=== PATIENT | female | born 1965 | race Caucasian/White ===

== ENCOUNTER 2018-01-25 09:04 | Outpatient (CLI) | payer MEDICAID, SELFPAY ==
[2018-01-25 09:36] LABS: Abs Immature Grans 0.01 k/cumm (0.0-0.09); Absolute Basophil Count 0.02 k/cumm (0.0-0.2); Absolute Eosinophil Count 0.29 k/cumm (0.0-0.7); Absolute Lymphocyte Count 1.09 k/cumm (1.2-3.4); Absolute Monocyte Count 0.52 k/cumm (0.11-0.7); Basophils % 0.3; Eosinophils % 4.7; HCT 43.7 % (36.0-46.0); HGB 15.2 g/dL (12.0-15.5); Immature Grans % 0.2; Lymphocytes % 17.8; Mean Corp. HGB Concentration 34.8 g/dL (32.0-36.0); Mean Corpuscular Volume 86.4 fL (80-95); Mean Platelet Volume 9.9 fL (8.0-11.0); Monocytes % 8.5; Neutrophils % 68.5; RBC 5.06 m/cumm (4.00-5.20); RBC Distribution Width 15.2 % (11.7-14.6); White Blood Cell Count 6.13 k/cumm (4.4-10.8)
[2018-01-25 09:47] LABS: ALT 46 U/L (12-78); AST 31 U/L (15-37); Albumin 3.5 g/dL (3.4-5.0); Alkaline Phosphatase 143 U/L (46-116); Anion Gap 9.3 mmol/L (3-11); BUN 8 mg/dL (7-18); Bilirubin, Total 1.2 mg/dL (0.2-1.0); CO2 27.7 mmol/L (21.0-32.0); CREATININE 0.75 mg/dL (0.55-1.02); Calcium 9.4 mg/dL (8.5-10.1); Chloride 106 mmol/L (98-107); Glucose 145 mg/dL (70-100); Sodium 143 mmol/L (136-145); Total Protein 7.5 g/dL (6.4-8.2)
[2018-01-25 09:50] LABS: Diff Comment PLT Morph Reviewed; Platelet Count 95 x1000/uL (130-400)
[2018-01-25 09:51] LABS: RBC Morphology Normal
[2018-01-25 23:02] LABS: Estradiol 42 pg/ml
== END 2018-01-25 09:24 ==
PROVIDERS: PCP Physician Assistant Medical; Visit Provider Internal Medicine
DX: Z85.3 Personal history of malignant neoplasm of breast (principal)
CPT/HCPCS: 36415; 80053; 82670; 83001; 85025

== ENCOUNTER 2018-05-17 07:04 | Outpatient (CLI) | payer MEDICAID, SELFPAY ==
[2018-05-17 07:52] LABS: ALT 45 U/L (12-78); AST 26 U/L (15-37); Albumin 3.2 g/dL (3.4-5.0); Alkaline Phosphatase 208 U/L (46-116); Anion Gap 5.6 mmol/L (3-11); BUN 8 mg/dL (7-18); Bilirubin, Total 0.9 mg/dL (0.2-1.0); CO2 29.4 mmol/L (21.0-32.0); CREATININE 0.76 mg/dL (0.55-1.02); Calcium 8.7 mg/dL (8.5-10.1); Chloride 104 mmol/L (98-107); Glucose 293 mg/dL (70-100); Potassium 3.4 mmol/L (3.5-5.1); Sodium 139 mmol/L (136-145); Total Protein 7.3 g/dL (6.4-8.2)
[2018-05-17 11:41] LABS: Abs Immature Grans 0.01 k/cumm (0.0-0.09); Absolute Basophil Count 0.02 k/cumm (0.0-0.2); Absolute Eosinophil Count 0.21 k/cumm (0.0-0.7); Absolute Lymphocyte Count 1.05 k/cumm (1.2-3.4); Absolute Monocyte Count 0.63 k/cumm (0.11-0.7); Absolute Neutrophil Count 4.59 k/cumm (1.2-6.7); Basophils % 0.3; Eosinophils % 3.2; HCT 42.6 % (36.0-46.0); HGB 14.7 g/dL (12.0-15.5); Immature Grans % 0.2; Lymphocytes % 16.1; Mean Corp. HGB Concentration 34.5 g/dL (32.0-36.0); Mean Corpuscular Hemoglobin 29.8 pg (27.0-33.0); Mean Corpuscular Volume 86.2 fL (80-95); Mean Platelet Volume 10.3 fL (8.0-11.0); Monocytes % 9.7; Neutrophils % 70.5; Platelet Count 89 x1000/uL (130-400); RBC 4.94 m/cumm (4.00-5.20); RBC Distribution Width 15.2 % (11.7-14.6); White Blood Cell Count 6.51 k/cumm (4.4-10.8)
[2018-05-17 12:10] LABS: Diff Comment PLT Morph Reviewed; RBC Morphology Normal
[2018-05-17 17:03] LABS: Estradiol 36 pg/ml
[2018-05-18 10:15] LABS: FSH 7.7 mIU/ml
== END 2018-05-17 07:24 ==
PROVIDERS: PCP Physician Assistant Medical; Visit Provider Internal Medicine
DX: Z85.3 Personal history of malignant neoplasm of breast (principal)
CPT/HCPCS: 36415; 80053; 82670; 83001; 85025

== ENCOUNTER 2018-06-08 01:30 | Outpatient (CLI) | payer MEDICAID, SELFPAY ==
--- NOTE | 2018-06-08 13:35 | DI.RAD_ITS ---
SYMPTOMS/DIAGNOSIS: BREAST CA, STAGE II, RIGHT, C50.911; LONG-TERM CURRENT USE OF AROMATASE INHIBITOR, Z79.811; ASYMPTOMATIC POSTMENOPAUSAL STATE; ? OSTEOPOROSIS DEXA SCAN: Routine examination. No priors for comparison. Evaluation of the lateral spine shows no compression deformities. Evaluation of the left hip shows a total T score of 0.4 and a Z score of 1.1. Evaluation of the lumbar spine shows a total T score of 0.3 and a Z score of 1.3. This is within normal limits. No evidence of osteoporosis is present. IMPRESSION: No evidence of osteoporosis.
== END 2018-06-08 01:50 ==
PROVIDERS: PCP Physician Assistant Medical; Visit Provider Internal Medicine
DX: C50.911 Malignant neoplasm of unspecified site of right female breast (principal); Z79.811 Long term (current) use of aromatase inhibitors; Z78.0 Asymptomatic menopausal state; Z13.820 Encounter for screening for osteoporosis
CPT/HCPCS: 77080

== ENCOUNTER 2018-06-15 00:54 | Outpatient (CLI) | payer MEDICAID, SELFPAY ==
--- NOTE | 2018-06-15 07:00 | DIABASSESS_ITS ---
DESCRIPTION/ASSESSMENT: Amanda Miranda presents for diabetes self management support with a focus on lifestyle changes to prevent progression of diabetes. She reports many side effects of thirst, frequent urination, blurred vision, fatigue. Food Guidelines - Amanda has made changes to her meal plan by giving up sugar sweetened beverages and high sugar foods. She has [place] muffin PB or cream of wheat; a tuna sandwich, regular supperof meat, poatao occasionally, and vegetable. She has Yesenia cookies that are low sugar for snack as well as yogurt or fresh raspberry. She sleeps 4-10PM and naps at times during the day since she works nights a few nights a week. Physical Activity - states she does no regular physical activity but is on her feet a lot. Medication - taking Metformin without S/E. Monitoring - usually tests blood sugar around 5PM with range 117-278. No A1c available at this time. Risks/Related health history - states she has stage 4 cirrhosis; s/p breast cancer with residual neuropathy. She denies any stressors around these co- morbidities. 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 INTERVENTION: DSME is provided in the following AADE 7 areas based on patients interest and assessment of needs: Food Guidelines - reviewed food guide focused on healthier carbohydrates and distribution. Briefly discussed mindful eating. Physical Activity - discussed benefits and options. Medication - Explained dosages and side effects. Monitoring - suggested monitoring for 'meaning' to see what is impacting her variation in blood sugars. Reviewed blood sugar goals. Prevention - brief review of foot care. ACTION PLAN: Amanda will begin walking when it is safe and she has more time. look at carbohydrate on the package; look for fiber Individual DSME/T __1__ units billed TIME IN: 704 OUT: 744 No DM group education series being offered at this time.
== END 2018-06-15 01:14 ==
PROVIDERS: PCP Physician Assistant Medical; Visit Provider Dietitian, Registered
DX: E11.9 Type 2 diabetes mellitus without complications (principal); Z71.3 Dietary counseling and surveillance
CPT/HCPCS: 97802

== ENCOUNTER 2018-08-12 11:50 | Outpatient (CLI) | payer MEDICAID, SELFPAY ==
[2018-08-12 12:16] LABS: Abs Immature Grans 0.02 k/cumm (0.0-0.09); Absolute Basophil Count 0.01 k/cumm (0.0-0.2); Absolute Eosinophil Count 0.19 k/cumm (0.0-0.7); Absolute Lymphocyte Count 0.94 k/cumm (1.2-3.4); Absolute Neutrophil Count 3.83 k/cumm (1.2-6.7); Basophils % 0.2; Eosinophils % 3.5; HCT 41.5 % (36.0-46.0); Immature Grans % 0.4; Lymphocytes % 17.4; Mean Corp. HGB Concentration 33.7 g/dL (32.0-36.0); Mean Corpuscular Hemoglobin 29.3 pg (27.0-33.0); Mean Corpuscular Volume 86.8 fL (80-95); Monocytes % 7.4; Neutrophils % 71.1; RBC 4.78 m/cumm (4.00-5.20); RBC Distribution Width 15.2 % (11.7-14.6); White Blood Cell Count 5.39 k/cumm (4.4-10.8)
[2018-08-12 12:35] LABS: Diff Comment PLT Morph Reviewed; Platelet Count 89 x1000/uL (130-400); RBC Morphology Normal
[2018-08-12 12:48] LABS: ALT 35 U/L (12-78); AST 22 U/L (15-37); Albumin 3.3 g/dL (3.4-5.0); Alkaline Phosphatase 165 U/L (46-116); Anion Gap 7.8 mmol/L (3-11); BUN 11 mg/dL (7-18); Bilirubin, Total 0.9 mg/dL (0.2-1.0); CO2 28.2 mmol/L (21.0-32.0); CREATININE 0.64 mg/dL (0.55-1.02); Calcium 8.5 mg/dL (8.5-10.1); Chloride 104 mmol/L (98-107); Glucose 173 mg/dL (70-100); Potassium 3.5 mmol/L (3.5-5.1); Sodium 140 mmol/L (136-145); Total Protein 6.8 g/dL (6.4-8.2)
[2018-08-12 21:18] LABS: Estradiol 25 pg/ml
[2018-08-13 10:04] LABS: FSH 9.3 mIU/ml
== END 2018-08-12 12:10 ==
PROVIDERS: PCP Physician Assistant Medical; Visit Provider Internal Medicine
DX: Z85.3 Personal history of malignant neoplasm of breast (principal)
CPT/HCPCS: 36415; 80053; 82670; 83001; 85025

== ENCOUNTER 2018-08-18 14:06 | Outpatient (REF) | payer MEDICAID, SELFPAY ==
[2018-08-18 21:09] LABS: Cholesterol 165 mg/dL (50-200); HDL Cholesterol 39 mg/dL (40-60); LDL CHOLESTEROL 112 mg/dL (<100); Triglyceride 70 mg/dL (30-150)
== END 2018-08-18 14:26 ==
LOC: NCHCN 14:06
PROVIDERS: PCP Physician Assistant Medical; Visit Provider Physician Assistant Medical
DX: E11.9 Type 2 diabetes mellitus without complications (principal)
CPT/HCPCS: 80061; 83721

== ENCOUNTER 2018-12-09 07:56 | Outpatient (CLI) | payer MEDICAID, SELFPAY ==
[2018-12-09 08:32] LABS: Abs Immature Grans 0.01 k/cumm (0.0-0.09); Absolute Basophil Count 0.01 k/cumm (0.0-0.2); Absolute Eosinophil Count 0.15 k/cumm (0.0-0.7); Absolute Lymphocyte Count 1.17 k/cumm (1.2-3.4); Absolute Monocyte Count 0.58 k/cumm (0.11-0.7); Basophils % 0.2; Eosinophils % 2.4; HCT 44.4 % (36.0-46.0); HGB 15.2 g/dL (12.0-15.5); Immature Grans % 0.2; Lymphocytes % 18.8; Mean Corp. HGB Concentration 34.2 g/dL (32.0-36.0); Mean Corpuscular Hemoglobin 29.2 pg (27.0-33.0); Mean Corpuscular Volume 85.2 fL (80-95); Monocytes % 9.3; Neutrophils % 69.1; RBC 5.21 m/cumm (4.00-5.20); White Blood Cell Count 6.22 k/cumm (4.4-10.8)
[2018-12-09 08:46] LABS: ALT 40 U/L (12-78); AST 28 U/L (15-37); Albumin 3.4 g/dL (3.4-5.0); Alkaline Phosphatase 180 U/L (46-116); BUN 13 mg/dL (7-18); CREATININE 0.61 mg/dL (0.55-1.02); Calcium 9.2 mg/dL (8.5-10.1); Chloride 106 mmol/L (98-107); Glucose 134 mg/dL (70-100); Potassium 3.9 mmol/L (3.5-5.1); Sodium 141 mmol/L (136-145); Total Protein 7.7 g/dL (6.4-8.2)
[2018-12-09 08:56] LABS: Platelet Count 89 x1000/uL (130-400)
[2018-12-09 17:35] LABS: Estradiol 20 pg/ml
[2018-12-10 10:42] LABS: FSH 10.4 mIU/ml
== END 2018-12-09 08:16 ==
PROVIDERS: PCP Physician Assistant Medical; Visit Provider Internal Medicine
DX: Z78.0 Asymptomatic menopausal state (principal); C50.911 Malignant neoplasm of unspecified site of right female breast
CPT/HCPCS: 36415; 80053; 82670; 83001; 85025

== ENCOUNTER 2019-02-25 11:58 | Outpatient (CLI) | payer MEDICAID, SELFPAY ==
[2019-02-25 12:45] LABS: INR 1.1 (0.9-1.1)
[2019-02-25 13:00] LABS: Abs Immature Grans 0.01 k/cumm (0.0-0.09); HCT 42.3 % (36.0-46.0); HGB 14.6 g/dL (12.0-15.5); Mean Corp. HGB Concentration 34.5 g/dL (32.0-36.0); Mean Corpuscular Hemoglobin 29.4 pg (27.0-33.0); Mean Corpuscular Volume 85.3 fL (80-95); Mean Platelet Volume 9.8 fL (8.0-11.0); RBC 4.96 m/cumm (4.00-5.20); RBC Distribution Width 14.8 % (11.7-14.6); White Blood Cell Count 5.55 k/cumm (4.4-10.8)
[2019-02-25 13:29] LABS: ALT 46 U/L (14-59); AST 26 U/L (15-37); Albumin 3.6 g/dL (3.4-5.0); Alkaline Phosphatase 159 U/L (46-116); Anion Gap 10.5 mmol/L (3-11); BUN 8 mg/dL (7-18); Bilirubin, Total 1.2 mg/dL (0.2-1.0); CO2 24.5 mmol/L (21.0-32.0); CREATININE 0.56 mg/dL (0.55-1.02); Calcium 8.7 mg/dL (8.5-10.1); Chloride 107 mmol/L (98-107); Glucose 142 mg/dL (70-100); Potassium 3.5 mmol/L (3.5-5.1); Sodium 142 mmol/L (136-145); Total Protein 7.2 g/dL (6.4-8.2)
[2019-02-25 13:38] LABS: Platelet Count 75 x1000/uL (130-400)
[2019-02-25 13:40] LABS: Absolute Eosinophil Count 0.17 k/cumm (0.0-0.7); Absolute Lymphocyte Count 1.33 k/cumm (1.2-3.4); Absolute Monocyte Count 0.28 k/cumm (0.11-0.7); Absolute Neutrophil Count 3.77 k/cumm (1.2-6.7); Atypical Lymphocytes % 6; Diff Comment Manual Differential; RBC Morphology Normal
[2019-02-25 22:53] LABS: Estradiol 24 pg/ml
== END 2019-02-25 12:18 ==
PROVIDERS: PCP Physician Assistant Medical; Visit Provider Internal Medicine
DX: Z78.0 Asymptomatic menopausal state (principal); C50.911 Malignant neoplasm of unspecified site of right female breast; K74.60 Unspecified cirrhosis of liver
CPT/HCPCS: 36415; 80053; 82670; 83001; 85025; 85610

== ENCOUNTER 2019-04-13 07:15 | Outpatient (CLI) | payer MEDICAID, SELFPAY ==
[2019-04-14 13:21] LABS: FSH 7.4 mIU/mL (See Note)
[2019-04-14 16:03] LABS: Estradiol 36 pg/mL (See Note)
== END 2019-04-13 07:35 ==
PROVIDERS: PCP Physician Assistant Medical; Visit Provider Internal Medicine
DX: Z78.0 Asymptomatic menopausal state (principal)
CPT/HCPCS: 36415; 82670; 83001

== ENCOUNTER 2019-09-17 16:34 | Emergency (ER) | payer MEDICAID, SELFPAY ==
[2019-09-17 16:39] VITALS: BP 148/70; PULSE 87; RESP 18; TEMP 36.8; O2SAT 96
--- NOTE | 2019-09-17 16:49 | W.ED.GENAD ---
Discharge Plan Disposition Patient Disposition: HOME Condition: Improving Discharge Details Chief Complaint: Allergic Clinical Impression: Allergic reaction Primary Care Provider: Munira Kuo ED Provider: Alexys Fletcher Home Meds and New Rx's Prescriptions: New prednisone 20 mg tablet 40 mg PO DAILY 2 Days Qty: 4 RF: 0 Continued venlafaxine [Effexor XR] 37.5 MG capsule,extended release 24hr 75 mg PO DAILY RF: 0 Discharge Instructions Instructions: General Allergic Reaction (ED) Additional Instructions: Home to rest today. Please take the prednisone as prescribed the next 2 days. You may continue Benadryl 25 mg by mouth as needed for itching or swelling. Return if develop difficulty breathing, difficulty swallowing, or any other acute concerns. Medical Decision Making 54-year-old female who was checking her answering machine when she felt a sharp stinging and questions whether insect had landed on her hand due to open windows of the house. She developed mild erythema and swelling. She arrives feeling somewhat improved, denying difficulty breathing or trouble swallowing. Her exam reveals a slightly erythematous right long finger. Patient given prednisone, ranitidine, Benadryl and observed. She is improved. I will place her on 2 additional days of prednisone to toth against recrudescence of symptoms. She is stable and appropriate for discharge home. HPI General Mode of arrival: ambulatory. Date/Time Provider Initiated Documentation: 09/17/19 16:42. Limitations to Documentation: no limitations. Information obtained by: patient. History of Present Illness 54 year old F presents to the emergency department with the chief complaint of Right long finger pain and swelling after probable insect bite, described as moderate, Quality is described as dull and constant, and is localized to the right and upper extremity. Patient reports no radiation. Patient started experiencing this minute(s) and it has been constant. No relieving factors improve symptom(s), No exacerbating factors reported . Patient did receive the following treatments prior to arrival, none Related Data Home Medications Medication Instructions Recorded Confirmed venlafaxine [Effexor XR] 75 mg PO DAILY tab-cap 01/06/13 10/08/16 prednisone 40 mg PO DAILY 2 Days #4 tab 09/17/19 Previous Rx's Medication Instructions Recorded prednisone 40 mg PO DAILY 2 Days #4 tab 09/17/19 Allergies Allergy/AdvReac Type Severity Reaction Status Date / Time bee venom protein (honey bee) AdvReac Other (See Unverified 09/17/19 16:44 Comment) transparent dressing AdvReac rash Unverified 05/28/17 14:55 General Stated Complaint: Allergic JAYCE: 3 Review of Systems Narrative: No shortness of breath, no difficulty swallowing. No swelling of the hand. [facility] Surgical History (Updated 02/10/18 @ 14:36 by Akira Mobile DC) Breast, Mastectomy right section Cholecystectomy (10/08/16) Tonsillectomy and adenoidectomy Family History Other Neoplasm Social History Smoking/Tobacco Use Status: Never Drug use: Never Substance use type: does not use Do you feel safe at home: Yes Do you feel safe in your relationship?: Yes Exam Narrative Exam Narrative: GEN: awake, alert, oriented 3. Pleasant, well groomed, interactive. HEAD: Normocephalic, atraumatic ENT: Mucous membranes moist, oropharynx unremarkable, External ear exam unremarkable EYES: PERRL, EOMI NECK: Full ROM, no MIAN, no menigismus CHEST/RESP: Nontender, clear to auscultation bilateral, no wheeze/rhonchi/rales CARDIOVASCULAR: RRR, no murmur, rub lupe. 2+ Rad pulse bilateral EXT: Full ROM, the right long finger is mildly edematous with distal erythema. Capillary fill less than 2 seconds. Neuro: Grossly normal neurologic exam, conversant, interactive. Psych: Speech fluent, thoughts congruent, affect normal Course Vital Signs Vital signs: Vital Signs Temperature 36.8 C 09/17/19 16:39 Pulse 87 09/17/19 16:39 Respiratory Rate 18 09/17/19 16:39 Blood Pressure 148/70 H 09/17/19 16:39 Pulse Oximetry 96 09/17/19 16:39 Temperature 36.8 C 09/17/19 16:39 Temperature Source Temporal Artery Scan 09/17/19 16:39 Pulse 87 09/17/19 16:39 Respiratory Rate 18 09/17/19 16:39 Respiratory Effort Non-Labored 09/17/19 16:44 Blood Pressure 148/70 H 09/17/19 16:39 Blood Pressure Position Sitting 09/17/19 16:39 Pulse Oximetry 96 09/17/19 16:39 Oxygen Delivery Method Room Air 09/17/19 16:39 Oxygen Flow Rate 0 09/17/19 16:39 Pain Level 8 09/17/19 16:39
[2019-09-17] MEDS: predniSONE 20 MG TAB 40 MG PO (17:36)
[2019-09-17] MEDS: diphenhydrAMINE 25 MG CAP PO (17:36)
== END 2019-09-17 17:58 | disposition home or self-care (01) ==
PROVIDERS: Emergency Provider Emergency Medicine; PCP Physician Assistant Medical
DX: S60.462A Insect bite (nonvenomous) of right middle finger, initial encounter (principal); R60.0 Localized edema; W57.XXXA Bitten or stung by nonvenomous insect and other nonvenomous arthropods, initial encounter
CPT/HCPCS: 99283; J7512

== ENCOUNTER 2019-09-26 03:48 | Outpatient (CLI) | payer MEDICAID, SELFPAY ==
[2019-09-26 12:24] LABS: Abs Immature Grans 0.02 k/cumm (0.0-0.09); Absolute Basophil Count 0.02 k/cumm (0.0-0.2); Absolute Eosinophil Count 0.12 k/cumm (0.0-0.7); Absolute Lymphocyte Count 0.98 k/cumm (1.2-3.4); Absolute Monocyte Count 0.46 k/cumm (0.11-0.7); Absolute Neutrophil Count 3.54 k/cumm (1.2-6.7); Basophils % 0.4; Eosinophils % 2.3; HCT 43.6 % (36.0-46.0); HGB 15.1 g/dL (12.0-15.5); Immature Grans % 0.4 %; Lymphocytes % 19.1; Mean Corp. HGB Concentration 34.6 g/dL (32.0-36.0); Mean Corpuscular Hemoglobin 29.8 pg (27.0-33.0); Mean Platelet Volume 10.1 fL (8.0-11.0); Monocytes % 8.9; Neutrophils % 68.9; RBC 5.07 m/cumm (4.00-5.20); RBC Distribution Width 15.2 % (11.7-14.6); White Blood Cell Count 5.14 k/cumm (4.4-10.8)
[2019-09-26 12:35] LABS: ALT 46 U/L (14-59); AST 24 U/L (15-37); Albumin 3.4 g/dL (3.4-5.0); Alkaline Phosphatase 164 U/L (46-116); Anion Gap 7.1 mmol/L (3-11); BUN 8 mg/dL (7-18); Bilirubin, Total 1.3 mg/dL (0.2-1.0); CO2 28.9 mmol/L (21.0-32.0); CREATININE 0.67 mg/dL (0.55-1.02); Calcium 8.4 mg/dL (8.5-10.1); Chloride 102 mmol/L (98-107); Glucose 295 mg/dL (74-106); Potassium 3.6 mmol/L (3.5-5.1); Sodium 138 mmol/L (136-145); Total Protein 7.1 g/dL (6.4-8.2)
[2019-09-26 12:40] LABS: Diff Comment PLT Morph Reviewed; Platelet Count 73 x1000/uL (130-400); RBC Morphology Normal
[2019-09-26 21:51] LABS: Estradiol 23 pg/mL (See Note)
[2019-09-27 15:09] LABS: FSH 12.5 mIU/mL (See Note)
== END 2019-09-26 04:08 ==
PROVIDERS: PCP Physician Assistant Medical; Visit Provider Internal Medicine
DX: C50.911 Malignant neoplasm of unspecified site of right female breast (principal); Z78.0 Asymptomatic menopausal state
CPT/HCPCS: 36415; 80053; 82670; 83001; 85025

== ENCOUNTER 2019-10-10 09:28 | Outpatient (REF) | payer MEDICAID, SELFPAY ==
--- NOTE | 2019-10-10 08:30 | PAPFT_PTH ---
PATIENT: Amanda Miranda LOC: [facility] U#:[id number] AGE/SX: 54/F ROOM: RE10/10/[address]: NASIM Lee : 1965 BED: DIS: 10/10/2019 SPEC #: [id number] RECD: 10/10/19 12:54 STATUS: XAVIER RESherrie #: [id number] ESTELLE: 10/10/19 08:[address]: Julianna Vallecillo DEPT: [facility] Cytology RECD BY: Jeniffer Gamble ENTERED: 10/10/19 12:54 SP TYPE: PAPFT OTHR DR: Munira Kuo Tissues: 1 - CX/ENDOCX FOR PAP SMEARS Procedures: PAP THIN PREP/UVM Screening HPV DNA PROBE Comments: [id number]
== END 2019-10-10 09:48 ==
LOC: LBN 09:28
PROVIDERS: PCP Physician Assistant Medical; Visit Provider Nurse Practitioner Family
DX: Z12.4 Encounter for screening for malignant neoplasm of cervix (principal); Z11.51 Encounter for screening for human papillomavirus (HPV)
CPT/HCPCS: 88142; 87624

== ENCOUNTER 2019-10-12 02:23 | Outpatient (CLI) | payer MEDICAID, SELFPAY ==
--- NOTE | 2019-10-12 07:00 | DI.US_ITS ---
EXAM: US PELVIS TRANSVAGINAL Postmenopausal bleeding, n95.0: TECHNIQUE: Transabdominal and transvaginal imaging was performed using standard protocol. COMPARISON: No exams were available for comparison FINDINGS: KIDNEYS: Kidneys are symmetric in size. No evidence of renal calculi. No evidence of hydronephrosis. No renal mass or cyst identified. Bladder: Unremarkable. Incidental 2.4 centimeter liver cyst. UTERUS: Anteverted. The uterus measures 8.4 x 2.4 x 4.8 cm. Endometrium: 3 millimeters. Myometrium: Unremarkable. Cervix: Unremarkable. OVARIES: Right: Cyst or mass: Right ovary was unable to be visualized either transabdominally or transvaginall y. Left: Cyst or mass: None. DOPPLER: Color: Symmetric and uniform flow to the left ovary. No hyperemia. Duplex: Normal ovarian arterial waveforms visualized. CUL-DE-SAC: Free fluid: None. IMPRESSION: 1. Normal-appearing uterus with endometrial stripe within normal limits. 2. Unremarkable left ovary. The right ovary was not visualized. DATA REPOSITORY:
== END 2019-10-12 02:43 ==
PROVIDERS: PCP Physician Assistant Medical; Visit Provider Nurse Practitioner Family
DX: N95.0 Postmenopausal bleeding (principal)
CPT/HCPCS: 76830; 76856

== ENCOUNTER 2020-01-06 07:01 | Day surgery (SDC) | payer MEDICAID, SELFPAY ==
[2020-01-06 07:16] VITALS: BP 132/82; PULSE 87; RESP 18; TEMP 36.5; O2SAT 96
[2020-01-06] MEDS: Lactated Ringers 1,000 ML 80 ML IV (07:39)
--- NOTE | 2020-01-06 07:53 | W.PM.DSUDISC ---
Discharge Plan Disposition Patient Disposition: HOME Condition: Good Discharge Details Reason For Visit: Colonoscopy Attending Provider: Em Reynolds Primary Care Provider: Munira Kuo Home Meds and New Rx's Prescriptions: Continued metformin 500 mg tablet 500 mg PO DAILY RF: 0 exemestane 25 mg tablet 25 mg PO DAILY RF: 0 venlafaxine [Effexor XR] 37.5 MG capsule,extended release 24hr 75 mg PO DAILY RF: 0 nystatin 100,000 unit/gram cream 1 applic TP BID Qty: 30 RF: 2 triamcinolone acetonide 0.1 % cream 1 applic TP BID Qty: 30 RF: 1 clobetasol [Temovate] 0.05 % ointment 1 applic TP BID Qty: 60 RF: 1 Discontinued polyethylene glycol 3350 17 gram/dose powder 238 g PO ONCE Qty: 238 RF: 0 bisacodyl [Dulcolax (bisacodyl)] 5 mg tablet,delayed release (DR/EC) 5 mg PO ONCE Qty: 4 RF: 0 Discharge Instructions Additional Instructions: Findings: Your colonoscopy was normal. Follow up: Plan for colonoscopy in 5 years due to family history of colon cancer. Please call if you develop: fevers >101.5 Nausea or Vomiting Abdominal pain that is not transient DAY SURGERY UNIT POST COLONOSCOPY INSTRUCTIONS 1. Because there will be medication in your system for the next 24 hours, you may feel a little sleepy. Your coordination will be affected. Therefore: a. Do not drive or operate dangerous equipment for 24 hours. b. Do not drink alcohol beverages for 24 hours (not even beer). c. Plan to go home and rest for the day. 2. Generally there are no restrictions on your activity after a day or so has gone by, but you may feel a bit fatigued for a few days. 3 After you arrive home you may have a light meal and return to a normal diet as you can tolerate it without feeling sick to your stomach. 4. After surgery, you may feel pain or discomfort. This should be only transient, but if it persists please contact your doctor. 5. If there are any questions regarding the findings of your procedure, please feel free to contact your doctor. 6. If you are unable to contact your doctor with a problem, contact the hospital at [phone]. 7. Continue all your regular medications unless directed otherwise. I understand the above instructions and have no questions. Signature of Patient or Responsible Adult Escort Date/Time Name of Responsible Adult Escort Signature of Nurse Date/Time Activity:: Activity as Tolerated Diet:: As Tolerated Discharge Orders Discharge Orders: Discharge Order (Routine); Ordered 01/06/20 Ordered By: Em Reynolds DS: Diagnosis Discharge Diagnosis (1) FH: colon cancer: Status: Acute
--- NOTE | 2020-01-06 07:55 | W.COLOREPORT ---
Date of service: 01/06/20 Time of Service: 08:48 Colonoscopy Report Date of procedure: 01/06/20 Pre-op diagnosis general: FH colon cancer Post-op diagnosis procedure note: other (Normal colon) Procedure: Colonoscopy Surgeon: Em Reynolds Anesthesia proc note operative: MAC Indications: This patient presents for routine colonoscopy. Her mother was treated for colon cancer. Her last colonoscopy in 2014 was normal. She has no symptoms. Procedure Description: The patient was placed in the left Al position. Propofol was titrated to sedation. Digital rectal examination revealed no abnormalities. The scope was advanced to the cecum without difficulty. The ileocecal valve and appendiceal orifice were clearly identified. The prep was good. The scope was slowly withdrawn over the course of greater than 6 minutes with no abnormalities seen in the ascending, transverse, descending, sigmoid colon or rectum including on retroflexed view. The patient tolerated the procedure well and was stable to recovery. Plan for routine screening colonoscopy in 5 years or sooner if symptoms indicate.
[2020-01-06 09:28] VITALS: BP 133/82; PULSE 80; RESP 18; TEMP 36.3; O2SAT 97
== END 2020-01-06 09:22 | disposition home or self-care (01) ==
PROVIDERS: PCP Physician Assistant Medical; Visit Provider Surgery
PROC: 0DJD8ZZ Inspection of Lower Intestinal Tract, Via Natural or Artificial Opening Endoscopic (ICD-10-PCS; CPT 45378; principal; 2020-01-06 08:30)
DX: Z12.11 Encounter for screening for malignant neoplasm of colon (principal); Z80.0 Family history of malignant neoplasm of digestive organs; E11.9 Type 2 diabetes mellitus without complications; Z85.3 Personal history of malignant neoplasm of breast
CPT/HCPCS: 45378

== ENCOUNTER 2020-02-21 02:37 | Outpatient (CLI) | payer MEDICAID, SELFPAY ==
[2020-02-21 14:47] LABS: Abs Immature Grans 0.01 10^3/uL (0.0-0.06); Absolute Basophil Count 0.02 10^3/uL (0.0-0.2); Absolute Eosinophil Count 0.16 10^3/uL (0.0-0.7); Absolute Lymphocyte Count 0.89 10^3/uL (1.2-3.4); Absolute Monocyte Count 0.38 10^3/uL (0.1-0.8); Absolute Neutrophil Count 3.35 10^3/uL (1.2-6.7); Basophils % 0.4; Eosinophils % 3.3; HCT 42.1 % (36.0-46.0); HGB 14.6 g/dL (11.2-15.7); Immature Grans % 0.2; Lymphocytes % 18.5; MCH 29.5 pg (27.0-33.0); MCHC 34.7 % (32.0-36.0); MCV 85.1 fL (80-95); MPV 10.1 fL (8.0-11.0); Monocytes % 7.9; Neutrophils % 69.7; Nucleated RBC 0 %; RBC 4.95 10^6/uL (3.93-5.22); RDW 14.2 % (11.7-14.6); RDW-SD 43.1 fL; WBC 4.81 10^3/uL (4.4-10.8)
[2020-02-21 14:57] LABS: Platelet Count 73 10^3/uL (130-400)
[2020-02-21 14:58] LABS: RBC Morphology Normal
[2020-02-21 14:59] LABS: Diff Comment PLT Morph Reviewed
[2020-02-21 15:57] LABS: ALT 44 U/L (14-59); AST 25 U/L (15-37); Albumin 3.5 g/dL (3.4-5.0); Alkaline Phosphatase 179 U/L (46-116); Anion Gap 6.3 mmol/L (3-11); BUN 10 mg/dL (7-18); Bilirubin, Total 1.4 mg/dL (0.2-1.0); CO2 27.7 mmol/L (21.0-32.0); Calcium 8.8 mg/dL (8.5-10.1); Chloride 103 mmol/L (98-107); Glucose 259 mg/dL (74-106); Potassium 3.3 mmol/L (3.5-5.1); Sodium 137 mmol/L (136-145); Total Protein 6.7 g/dL (6.4-8.2)
[2020-03-01 13:20] LABS: FSH 13.1 mIU/mL
[2020-03-01 13:27] LABS: Estradiol 28 pg/mL
== END 2020-02-21 02:57 ==
PROVIDERS: PCP Physician Assistant Medical; Visit Provider Internal Medicine
DX: Z78.0 Asymptomatic menopausal state (principal); C50.911 Malignant neoplasm of unspecified site of right female breast
CPT/HCPCS: 36415; 80053; 82670; 83001; 85025

== ENCOUNTER 2020-06-18 22:27 | Emergency (ER) | payer MEDICAID, SELFPAY ==
--- NOTE | 2020-06-18 22:30 | DI.CT_ITS ---
EXAM: CT NECK CHEST ABD PEL W CLINICAL HISTORY: periumbilical abdominal pain, hematemasis. TECHNIQUE: Imaging Protocol: Axial computed tomography images with coronal and sagittal reformatted images were created and reviewed CONTRAST MATERIAL: 100 cc Omnipaque 350 IV. No oral contrast. COMPARISON: CT CHEST ABD PELVIS WITH CONTRAST from 01/22/2016 FINDINGS: Neck: Bones: No fractures or dislocations are seen. The alignment of the cervical spine is normal including the craniovertebral junction and cervicothora cic junction. Sinuses: Clear where visualized. Mastoid air cells: Clear where visualized. Soft Tissues: Unremarkable. No adenopathy. Chest: Exam is limited by respiratory motion. No pneumothorax, infiltrate, pleural or pericardial ef fusion is seen. The heart size is normal. The aorta and pulmonary arteries are unremarkable. No ma ss or adenopathy is seen. There is no evidence of bronchiectasis or emphysematous changes. No pneum omediastinum. Small hiatal hernia. Esophageal varices. No definite variceal rupture. Abdomen and pelvic: The spleen is enlarged. The liver shows fatty infiltration and question of mild cirrhotic changes.. Cystic areas are noted in both lobes. The patient is status post cholecystectomy. There is no bili shira dilatation. The pancreas, adrenals and kidneys are unremarkable. There is recon cannulated umbi lical vein. The appendix appears normal. There is no bowel dilatation or inflammatory change. Ther e is no ascites. The aorta is normal in diameter shows mild calcification. The uterus, ovaries and bladder are unremarkable. There are mild degenerative disc changes in the spine. No fractures are s een. IMPRESSION: Esophageal varices and wall thickening of the lower esophagus. Splenomegaly question of mild cirrhos is. Upper abdominal varices.. No ascites. RADIATION DOSE DELIVERED: 1,750.15mGy.cm Total DLP DATA REPOSITORY: All CT scans at this facility are submitted to the National Radiology Data Registry (NRDR) Dose Index Registry (DIR) with the [employer] (ACR). RADIATION OPTIMIZATION: All CT scans at this facility use at least one of these dose optimization te chniques: automated exposure control; mA and/or kV adjustment per patient size (includes targeted exa ms where dose is matched to clinical indication); or iterative reconstruction.
[2020-06-18 22:31] VITALS: BP 145/75; PULSE 123; RESP 16; TEMP 37; O2SAT 96
--- NOTE | 2020-06-18 22:38 | W.ED.GENAD ---
Discharge Plan Disposition Patient Disposition: [facility] Condition: Serious Discharge Details Clinical Impression: Acute upper gastrointestinal bleeding, Esophageal varices Primary Care Provider: Munira Kou ED Provider: Gilmar Edward Home Meds and New Rx's Prescriptions: No Action metformin 500 mg tablet 500 mg PO DAILY RF: 0 exemestane 25 mg tablet 25 mg PO DAILY RF: 0 venlafaxine [Effexor XR] 37.5 MG capsule,extended release 24hr 75 mg PO DAILY RF: 0 nystatin 100,000 unit/gram cream 1 applic TP BID Qty: 30 RF: 2 triamcinolone acetonide 0.1 % cream 1 applic TP BID Qty: 30 RF: 1 clobetasol [Temovate] 0.05 % ointment 1 applic TP BID Qty: 60 RF: 1 Medical Decision Making <Eric Chacon DO - Last Filed: 06/18/20 22:47> 55-year-old female with a past medical history of chronic hepatic steatosis, previous breast cancer with mastectomy, previous abdominal , presents today for hematemesis. Patient states that for the last 2 days she has not been feeling well in general, mildly nauseous, she has not been eating much at all. She has noted dark stools for the last 3 days. At 9:30 PM this evening the patient had a notable episode of hematemesis, she states that it was multiple cupfuls of blood and clots. She came to the ER for further evaluation. Currently she admits to mild right mid abdominal pain, she feels that this is somewhat subsided though. She denies any chest pain, shortness of breath, epigastric discomfort, or other complaints. She denies ever having any history of this in the past. She denies any blood thinner use. No other complaints at this time. No other modifying factors. Physical exam demonstrates mild abdominal tenderness. No blood in the oropharynx. She does have tachycardic heart rate, however pressures are stable. Review of EGD performed on 03/16/2017 at [facility] shows evidence of grade 1 varices/small, found in the middle third of the esophagus and in the lower third of the esophagus. A short segment of salmon-colored villous mucosal changes suggestive of short segment of Baltazar's esophagus. Symptoms are certainly concerning for upper GI bleed, potentially gastric versus variceal. She shows no signs of airway compromise at all, and the. Otherwise notably stable right now. Will start Protonix and famotidine infusion and bolus. I feel we can hold off on octreotide unless she has repeated episodes. We will get a CT scan of the chest abdomen pelvis with contrast for further evaluation. We will type and screen, but I suspect the patient will require admission for EGD. Case will be signed out to my colleague Dr. Gilmar Edward for final disposition after labs and imaging have returned. <Gilmar Edward MD - Last Filed: 06/19/20 00:40> pt signed out to me pending labs and ct imaging, hemoglobin 11.8, last time it was checked was in january of last year and at that time was 14.6. HR now 107 and blood presure stable, ct shows varices and question of possible atelectsais vs pneumonia but has no clinical symptoms such as cough or dyspnea and no fevers to suggest pneumonia. I spoke with our general surgeon fashion model Dr. Sales who reviewed the case and recommended transfer as we cannot control variceal bleeding here. Pt updated of this and understands findings, will consult with [facility] for transfer. Pt still with normal bp and HR 105, no vomit here, [place] [facility] for transfer to their icu, Dr. Jackson is the accepting provider. Pt updated and is in agreement with plan. Will recheck cbc while waiting for patient to be transferred Imaging Data Radiologic Study: Attestation: I personally reviewed and interpreted this imaging study as follows: Imaging: CT Scan Radiologist's impression: IMPRESSION: 1. Findings suspicious for esophageal varices noted with enhancing nodular appearance adjacent to and in the wall of the distal esophagus. Upper abdominal varices, splenomegaly suggest portal hypertension as underlying cause. 2. Subtle pulmonary opacities in the right lobe of the liver and to a lesser extent in the lingula and at the bases likely reflect atelectasis. Clinical correlation however recommended to exclude pneumonia. 1. Findings suspicious for portal hypertension manifest as splenomegaly and upper abdominal including esophageal varices. 2. Equivocal micro nodular hepatic contour may reflect hepatic cirrhosis. Lab Data Lab results reviewed: Yes I reviewed the patient's lab results. HPI <Eric Chacon DO - Last Filed: 06/18/20 22:47> General Date/Time Provider Initiated Documentation: 06/18/20 22:27. HPI Narrative: 55-year-old female with a past medical history of chronic hepatic steatosis, previous breast cancer with mastectomy, previous abdominal , presents today for hematemesis. Patient states that for the last 2 days she has not been feeling well in general, mildly nauseous, she has not been eating much at all. She has noted dark stools for the last 3 days. At 9:30 PM this evening the patient had a notable episode of hematemesis, she states that it was multiple cupfuls of blood and clots. She came to the ER for further evaluation. Currently she admits to mild right mid abdominal pain, she feels that this is somewhat subsided though. She denies any chest pain, shortness of breath, epigastric discomfort, or other complaints. She denies ever having any history of this in the past. She denies any blood thinner use. No other complaints at this time. No other modifying factors. Related Data Home Medications Medication Instructions Recorded Confirmed venlafaxine [Effexor XR] 75 mg PO DAILY tab-cap 01/06/13 06/18/20 metformin 500 mg tablet 500 mg PO DAILY 10/10/19 06/18/20 exemestane 25 mg tablet 25 mg PO DAILY 10/25/19 02/07/20 nystatin 100,000 unit/gram topical 1 applic TP BID #30 gm 10/25/19 06/18/20 cream triamcinolone acetonide 0.1 % 1 applic TP BID #30 gm 10/25/19 02/07/20 topical cream clobetasol 0.05 % topical ointment 1 applic TP BID #60 gm 11/15/19 02/07/20 Previous Rx's Medication Instructions Recorded nystatin 100,000 unit/gram topical 1 applic TP BID #30 gm 10/25/19 cream triamcinolone acetonide 0.1 % 1 applic TP BID #30 gm 10/25/19 topical cream clobetasol 0.05 % topical ointment 1 applic TP BID #60 gm 11/15/19 Allergies Allergy/AdvReac Type Severity Reaction Status Date / Time bee venom protein (honey bee) AdvReac Other (See Verified 06/18/20 22:39 Comment) General Stated Complaint: GI Bleed JAYCE: 2 Review of Systems <Eric Chacon DO - Last Filed: 06/18/20 22:47> All systems reviewed & are unremarkable except as noted in HPI and below PFSH <Eric Chacon DO - Last Filed: 06/18/20 22:47> Medical History Breast cancer In remission: 5 years Diabetes Post-menopausal bleeding Vaginal atrophy Vulvar irritation Surgical History Breast, Mastectomy right section Cholecystectomy (10/08/16) Tonsillectomy and adenoidectomy Family History Father Colon cancer Mother Diabetes Cervical cancer Maternal Cousin Breast cancer Paternal Grandfather Breast cancer Other Neoplasm Social History Smoking/Tobacco Use Status: Never Smoking risk assessment performed?: Yes Alcohol Intake: former Drug use: Never Substance use type: does not use Do you feel safe at home: Yes Do you feel safe in your relationship?: Yes Exam <Eric Chacon DO - Last Filed: 06/18/20 22:47> Narrative Exam Narrative: 1.Const: Well-nourished, Well-developed, appearing stated age 2.Eyes: PERRL, no conjunctival injection, and symmetrical lids. 3.ENT: Atraumatic external nose and ears. Moist MM. Neck: Symmetric, trachea midline, No thyromegaly. No blood in the posterior oropharynx. 4.CVS: +S1/S2, No murmurs or gallops. Peripheral pulses 2+ and equal in all extremities. Brisk capillary refill in all extremities. 5.RESP: Unlabored respiratory effort. Clear to auscultation bilaterally. No wheezes rales or rhonchi 6.GI: Soft, nondistended, no guarding or rebound. Mild mid periumbilical abdominal tenderness. 7.MSK: Normocephalic/Atraumatic, Extremities w/o deformity or ttp No cyanosis or clubbing, Normal movement of all extremities 8.Skin: Warm, Dry. No rashes or lesions. 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 Sensation grossly intact, no focal neurologic deficits. 10.Psych: (AAO) x3. Appropriate mood and affect Course <Eric Chacon DO - Last Filed: 06/18/20 22:47> Vital Signs Vital signs: Vital Signs Temperature 37 C 06/18/20 22:31 Pulse 123 H 06/18/20 22:31 Respiratory Rate 16 06/18/20 22:31 Blood Pressure 145/75 H 06/18/20 22:31 Pulse Oximetry 96 06/18/20 22:31 Temperature 37 C 06/18/20 22:31 Temperature Source Tympanic 06/18/20 22:31 Pulse 123 H 06/18/20 22:31 Respiratory Rate 16 06/18/20 22:31 Respiratory Effort Non-Labored 06/18/20 22:31 Blood Pressure 145/75 H 06/18/20 22:31 Blood Pressure Position Sitting 06/18/20 22:31 Pulse Oximetry 96 06/18/20 22:31 Oxygen Delivery Method Room Air 06/18/20 22:31 Oxygen Flow Rate 0 06/18/20 22:31 Pain Level 5 06/18/20 22:31 Sign Out <Eric Chacon DO - Last Filed: 06/18/20 22:47> Sign Out Data: Sign Out Comment: Upper GI bleed, potential for esophageal varices. Stable at this time. Pending labs, and imaging. Last updated by Eric Chacon DO at 06/18/20 22:48
[2020-06-18] MEDS: Normal Saline 1,000 ML 1000 ML IV (22:47)
[2020-06-18] MEDS: Ondansetron 4 MG/2 ML VIAL IVP (22:47)
[2020-06-18] MEDS: Pantoprazole 40 MG VIAL IVP (22:49)
[2020-06-18 22:50] LABS: Abs Immature Grans 0.05 10^3/uL (0.0-0.06); Absolute Basophil Count 0.05 10^3/uL (0.0-0.2); Absolute Eosinophil Count 0.28 10^3/uL (0.0-0.7); Absolute Lymphocyte Count 2.62 10^3/uL (1.2-3.4); Absolute Monocyte Count 0.92 10^3/uL (0.1-0.8); Absolute Neutrophil Count 6.37 10^3/uL (1.2-6.7); Basophils % 0.5; Eosinophils % 2.7; HCT 33.9 % (36.0-46.0); HGB 11.8 g/dL (11.2-15.7); Immature Grans % 0.5; Lymphocytes % 25.5; MCH 30.2 pg (27.0-33.0); MCHC 34.8 % (32.0-36.0); MCV 86.7 fL (80-95); MPV 10.1 fL (8.0-11.0); Monocytes % 8.9; Neutrophils % 61.9; Nucleated RBC 0 %; Platelet Count 128 10^3/uL (130-400); RBC 3.91 10^6/uL (3.93-5.22); RDW-SD 46.5 fL; WBC 10.29 10^3/uL (4.4-10.8)
[2020-06-18] MEDS: FAMOTIDINE 20 MG/50 ML BAG 100 MG IVPB (22:50)
--- NOTE | 2020-06-18 22:52 | NUR.NOTE ---
Addendum entered by Matilda Epperson 06/18/20 22:52: LAST ORAL INTAKE 5PM Original Note: Nursing Note:
[2020-06-18 22:58] LABS: Lipase 108 U/L (73-393)
[2020-06-18 23:04] LABS: ALT 44 U/L (14-59); AST 18 U/L (15-37); Alkaline Phosphatase 140 U/L (46-116); Anion Gap 9.7 mmol/L (3-11); BUN 26 mg/dL (7-18); Bilirubin, Total 1.1 mg/dL (0.2-1.0); CO2 25.3 mmol/L (21.0-32.0); CREATININE 0.6 mg/dL (0.55-1.02); Calcium 8.2 mg/dL (8.5-10.1); Chloride 107 mmol/L (98-107); Glucose 251 mg/dL (74-106); Magnesium 1.6 mg/dL (1.8-2.4); Potassium 3.3 mmol/L (3.5-5.1); Sodium 142 mmol/L (136-145); Total Protein 6.2 g/dL (6.4-8.2)
[2020-06-18] MEDS: Sucralfate 1 GM TAB PO (23:04)
[2020-06-18 23:07] LABS: INR 1.1 (0.9-1.1); Prothrombin Time 11.3 sec (9.3-11.0)
[2020-06-18] MEDS: Normal Saline Flush 10 ML SYR IVP (23:29)
[2020-06-18] MEDS: Normal Saline - Diluent 50 ML VIAL IV (23:29)
[2020-06-18] MEDS: Omnipaque 350 MG/ML 100 ML BTL IJ (23:29)
[2020-06-18 23:31] LABS: Influenza A PCR Negative (Negative); Influenza B PCR Negative (Negative); RSV PCR Negative (Negative)
[2020-06-18 23:40] LABS: COVID-19 PCR Negative (Negative)
--- NOTE | 2020-06-18 23:50 | DI.VRAD_ITS ---
Addendum created by Deacon Whiting MD on 06/19/2020 12:04:38 AM EST: Correction: The impression for the neck should read as follows: Impression: No acute findings The impression for the chest should read as follows: Impression: 1. Findings suspicious for esophageal varices. 2. Subtle pulmonary opacities in the right lobe and to a lesser extent in the lingula and at the bases likely reflect atelectasis. Clinical correlation however recommended to exclude pneumonia Initial report created on 06/18/2020 11:49:57 PM EST: PROCEDURE INFORMATION: Exam: CT Neck With Contrast Exam date and time: 06/18/2020 10:37 PM Age: 55 years old Clinical indication: Abdominal tenderness and vomiting; Other: Hematemasis; Prior surgery; Surgery date: 6+ months; Surgery type: C-sections and R breast lumpectomy; Patient HX: Periumbilical pain, abdominal pain, blood in stool, hemaemesis TECHNIQUE: Imaging protocol: Computed tomography images of the neck with intravenous contrast. Radiation optimization: All CT scans at this facility use at least one of these dose optimization techniques: automated exposure control; mA and/or kV adjustment per patient size (includes targeted exams where dose is matched to clinical indication); or iterative reconstruction. Contrast material: OMNIPAQUE 350; Contrast volume: 100 ml; Contrast route: INTRAVENOUS (IV); COMPARISON: No relevant prior studies available. FINDINGS: Nasopharynx: Unremarkable. Oropharynx: Unremarkable. No significant tonsillar enlargement. Hypopharynx: Unremarkable. Larynx: Unremarkable. Normal epiglottis. Retropharyngeal space: Unremarkable. Submandibular/Parotid glands: Normal. Glands are normal in size. Thyroid: Normal. No enlarged or calcified nodules. Lymph nodes: Unremarkable. No lymphadenopathy. Trachea: Visualized trachea is unremarkable. Lungs: Basilar dependent pulmonary atelectasis is present. Subtle pulmonary opacities in the right lobe of the liver and to a lesser extent in the lingula and at the bases likely reflect atelectasis. Clinical correlation however recommended to exclude pneumonia. Esophagus: Findings suspicious for esophageal varices noted with enhancing nodular appearance adjacent to and in the wall of the distal esophagus. Upper abdominal varices, splenomegaly suggest portal hypertension as underlying cause. Bones/joints: Unremarkable. No acute fracture. Soft tissues: Unremarkable. No significant soft tissue swelling. IMPRESSION: 1. Findings suspicious for esophageal varices noted with enhancing nodular appearance adjacent to and in the wall of the distal esophagus. Upper abdominal varices, splenomegaly suggest portal hypertension as underlying cause. 2. Subtle pulmonary opacities in the right lobe of the liver and to a lesser extent in the lingula and at the bases likely reflect atelectasis. Clinical correlation however recommended to exclude pneumonia. PROCEDURE INFORMATION: Exam: CT Chest With Contrast; Diagnostic Exam date and time: 06/18/2020 10:37 PM Age: 55 years old Clinical indication: Abdominal tenderness and vomiting; Other: Hematemasis; Prior surgery; Surgery date: 6+ months; Surgery type: C-sections and R breast lumpectomy; Patient HX: Periumbilical pain, abdominal pain, blood in stool, hemaemesis TECHNIQUE: Imaging protocol: Diagnostic computed tomography of the chest with contrast. Radiation optimization: All CT scans at this facility use at least one of these dose optimization techniques: automated exposure control; mA and/or kV adjustment per patient size (includes targeted exams where dose is matched to clinical indication); or iterative reconstruction. Contrast material: OMNIPAQUE 350; Contrast volume: 100 ml; Contrast route: INTRAVENOUS (IV); COMPARISON: No relevant prior studies available. FINDINGS: Lungs: Unremarkable. No consolidation. No masses. Pleural spaces: Unremarkable. No pneumothorax. No pleural effusion. Heart: Unremarkable. No cardiomegaly. No pericardial effusion. Aorta: Unremarkable. No aortic aneurysm. Lymph nodes: Unremarkable. No enlarged lymph nodes. Bones/joints: Unremarkable. No acute fracture. Soft tissues: Unremarkable. IMPRESSION: No acute findings. PROCEDURE INFORMATION: Exam: CT Abdomen And Pelvis With Contrast Exam date and time: 06/18/2020 10:37 PM Age: 55 years old Clinical indication: Abdominal tenderness and vomiting; Other: Hematemasis; Prior surgery; Surgery date: 6+ months; Surgery type: C-sections and R breast lumpectomy; Patient HX: Periumbilical pain, abdominal pain, blood in stool, hemaemesis TECHNIQUE: Imaging protocol: Computed tomography of the abdomen and pelvis with contrast. Radiation optimization: All CT scans at this facility use at least one of these dose optimization techniques: automated exposure control; mA and/or kV adjustment per patient size (includes targeted exams where dose is matched to clinical indication); or iterative reconstruction. Contrast material: OMNIPAQUE 350; Contrast volume: 100 ml; Contrast route: INTRAVENOUS (IV); COMPARISON: No relevant prior studies available. FINDINGS: Liver: Equivocal micro nodular hepatic contour may reflect hepatic cirrhosis. Gallbladder and bile ducts: Gallbladder removed. No ductal dilation. Pancreas: Normal. No ductal dilation. Spleen: Findings suspicious for portal hypertension manifest as splenomegaly and upper abdominal including esophageal varices. Adrenal glands: Normal. No mass. Kidneys and ureters: Normal. No hydronephrosis. Stomach and bowel: Unremarkable. No obstruction. No mucosal thickening. Appendix: No evidence of appendicitis. Intraperitoneal space: Unremarkable. No free air. No significant fluid collection. Vasculature: Unremarkable. No abdominal aortic aneurysm. Lymph nodes: Unremarkable. No enlarged lymph nodes. Urinary bladder: Unremarkable as visualized. Reproductive: Unremarkable as visualized. Bones/joints: Unremarkable. No acute fracture. Soft tissues: Unremarkable. IMPRESSION: 1. Findings suspicious for portal hypertension manifest as splenomegaly and upper abdominal including esophageal varices. 2. Equivocal micro nodular hepatic contour may reflect hepatic cirrhosis. Dictated and Authenticated by: Deacon Whiting MD. Ordering:NIMO Reyes MD
[2020-06-18] MEDS: MAGNESIUM SULFATE 2 GM/50 ML BAG IVPB (23:53)
[2020-06-18] MEDS: POTASSIUM CHLORIDE 10 MEQ/100 ML BAG 100 MEQ IVPB (23:53)
[2020-06-19 00:18] VITALS: BP 106/69; RESP 16; O2SAT 98
[2020-06-19 00:51] LABS: HCT 29.7 % (36.0-46.0); HGB 10.3 g/dL (11.2-15.7); MCH 30.4 pg (27.0-33.0); MCHC 34.7 % (32.0-36.0); MCV 87.6 fL (80-95); MPV 9.8 fL (8.0-11.0); Platelet Count 91 10^3/uL (130-400); RBC 3.39 10^6/uL (3.93-5.22); RDW 15.1 % (11.7-14.6); RDW-SD 47.3 fL; WBC 8.89 10^3/uL (4.4-10.8)
[2020-06-19 01:19] VITALS: BP 106/86; PULSE 96; RESP 16; O2SAT 98
== END 2020-06-19 01:25 | disposition short-term general hospital (02) ==
PROVIDERS: Student in an Organized Health Care Education/Training Program; Emergency Provider Emergency Medicine; PCP Physician Assistant Medical
DX: K92.2 Gastrointestinal hemorrhage, unspecified (principal); I85.00 Esophageal varices without bleeding; E11.9 Type 2 diabetes mellitus without complications; Z79.84 Long term (current) use of oral hypoglycemic drugs; Z20.822 Contact with and (suspected) exposure to COVID-19
CPT/HCPCS: 70491; 74177; 80053; 83690; 85027; 86850; 86900; 86901; 96361; 96365; 96366; 96368; 96375; 99285; 71260; 83735; 85025; 85610; J2405; J3480; J3490

== ENCOUNTER 2020-06-29 18:03 | Outpatient (REF) | payer MEDICAID, SELFPAY ==
[2020-06-29 18:38] LABS: Abs Immature Grans 0.01 10^3/uL (0.0-0.06); Absolute Basophil Count 0.03 10^3/uL (0.0-0.2); Absolute Eosinophil Count 0.19 10^3/uL (0.0-0.7); Absolute Lymphocyte Count 0.83 10^3/uL (1.2-3.4); Absolute Monocyte Count 0.54 10^3/uL (0.1-0.8); Absolute Neutrophil Count 3.21 10^3/uL (1.2-6.7); Basophils % 0.6; HGB 10.8 g/dL (11.2-15.7); Immature Grans % 0.2; Lymphocytes % 17.3; MCH 28.6 pg (27.0-33.0); MCHC 31.8 % (32.0-36.0); MCV 90.2 fL (80-95); MPV 10.3 fL (8.0-11.0); Monocytes % 11.2; Neutrophils % 66.7; Nucleated RBC 0 %; Platelet Count 143 10^3/uL (130-400); RBC 3.77 10^6/uL (3.93-5.22); RDW 15.3 % (11.7-14.6); RDW-SD 50.4 fL; WBC 4.81 10^3/uL (4.4-10.8)
[2020-06-29 18:49] LABS: Hemoglobin A1C 6.8 % (<5.7); Iron 35 ug/dL (50-170); Total Iron Binding Capacity 440 ug/dL (250-450); Transferrin Sat 8 % (15-50)
[2020-06-29 18:51] LABS: Calculated LDL 98 mg/dL (<100); Cholesterol 153 mg/dL (<200); HDL Cholesterol 45 mg/dL (40-60); Triglyceride 53 mg/dL (<150)
[2020-06-29 19:02] LABS: Ferritin 36 ng/mL (8-252)
== END 2020-06-29 18:04 | disposition home or self-care (01) ==
LOC: NCHCN 18:03
PROVIDERS: PCP Physician Assistant Medical; Visit Provider Physician Assistant Medical
DX: E11.9 Type 2 diabetes mellitus without complications (principal); Z00.00 Encounter for general adult medical examination without abnormal findings
CPT/HCPCS: 80061; 82728; 83036; 83540; 83550; 85025

== ENCOUNTER 2020-08-15 12:27 | Emergency (ER) | payer MEDICAID, SELFPAY ==
[2020-08-15 12:46] VITALS: BP 144/87; PULSE 76; RESP 16; TEMP 36.6; O2SAT 96
--- NOTE | 2020-08-15 13:03 | ED.GENADUL_ITS ---
Discharge Plan Disposition Patient Disposition: HOME Condition: Good Discharge Details Clinical Impression: Postoperative nausea and vomiting Primary Care Provider: Munira Kuo ED Provider: Ana Maria Jackson Home Meds and New Rx's Prescriptions: Continued metformin 500 mg tablet 500 mg PO DAILY RF: 0 exemestane 25 mg tablet 25 mg PO DAILY RF: 0 venlafaxine [Effexor XR] 37.5 MG capsule,extended release 24hr 75 mg PO DAILY RF: 0 nystatin 100,000 unit/gram cream 1 applic TP BID Qty: 30 RF: 2 triamcinolone acetonide 0.1 % cream 1 applic TP BID Qty: 30 RF: 1 clobetasol [Temovate] 0.05 % ointment 1 applic TP BID Qty: 60 RF: 1 Discharge Instructions Instructions: Acute Nausea and Vomiting (ED) Additional Instructions: Gastroenterology at [facility] would like for you to stick with a bland diet until all of your symptoms have completely resolved. You may continue with your Zofran as previously prescribed for symptomatic management of your nausea and vomiting. If you begin vomiting blood, high fevers, severe pain or other new/worsening symptoms please seek care urgently once again. Please avoid any red food or beverages. Referrals: Munira Kuo PA [Primary Care Provider] - Discharge Data Discharge Date/Time-TO BE ENTERED AT DEPARTURE: 08/15/20 14:09 Medical Decision Making Patient is a pleasant 55 year old female presenting today with chief complaint of vomiting. Patient reports that she left [facility] today after having an EGD for esophageal varices. Reports that these were clipped. States that she vomited x2 in the car. No blood in her emesis. States that she has tried water and corn chowder since being discharged. Was unable to keep either of these down. Reports that she often has nausea and vomiting, particularly after anesthetic agents. She describes Zofran but did not use any of these. Reports that she been having some mild abdominal discomfort after the procedure. On exam, patient appears nontoxic. Vital signs are stable. Lungs are clear, normal cardiac exam. She is diffuse mild abdominal discomfort but nonperitoneal. She has no palpable subcutaneous air. No evidence of active bleeding. At this time, patient is stable. Feel that the vomiting is likely associated with her typical nausea and vomiting she has after anesthesia. Will give ODT Zofran. Patient is concerned this could be surgical complication, will touch base with surgeon. I do not see any evidence of bleeding or perforation on exam. Spoke with Dr. Hayward with GI who agrees with the plan set forth as well. Again, no emergent findings on exam to suggest bleeding from rupture. She advised patient continue with a bland diet. I did reiterate this again to the patient. She also advised that she can continue with the Zofran to help with any recurrence of her nausea or vomiting. Patient will keep her scheduled appointment. I discussed his recommendations at length with the patient. We discussed dietary recommendations. All of her questions and concerns were addressed and she is in agreement this plan HPI General Mode of arrival: ambulatory . Date/Time Provider Initiated Documentation: 08/15/20 13:03 . Limitations to Documentation: no limitations . Information obtained by: patient, RN notes reviewed and old records reviewed (reviewed records from [facility]) . History of Present Illness 55 year old F presents to the emergency department with the chief complaint of abdominal discomfort and vomiting after EGD with banding of variceal bandin, described as moderate, with intensity rated at 6. Quality is described as aching, and is localized to the abdomen (reports diffuse discomfort). Patient reports no radiation. Patient started experiencing this hour(s) (discomfort has been present since surgery) and it has been constant. No relieving factors improve symptom(s), No exacerbating factors reported . Patient notes loss of appetite (reports she ate corn chowder prior to onset of N/V) and nausea/vomiting; denies chest pain, cough, fever/chills and shortness of breath. Patient did receive the following treatments prior to arrival, none Related Data Home Medications Medication Instructions Recorded Confirmed venlafaxine [Effexor XR] 75 mg PO DAILY tab-cap 01/06/13 08/15/20 metformin 500 mg tablet 500 mg PO DAILY 10/10/19 08/15/20 exemestane 25 mg tablet 25 mg PO DAILY 10/25/19 08/15/20 nystatin 100,000 unit/gram topical 1 applic TP BID #30 gm 10/25/19 08/15/20 cream triamcinolone acetonide 0.1 % 1 applic TP BID #30 gm 10/25/19 08/15/20 topical cream clobetasol 0.05 % topical ointment 1 applic TP BID #60 gm 11/15/19 08/15/20 Previous Rx's Medication Instructions Recorded nystatin 100,000 unit/gram topical 1 applic TP BID #30 gm 10/25/19 cream triamcinolone acetonide 0.1 % 1 applic TP BID #30 gm 10/25/19 topical cream clobetasol 0.05 % topical ointment 1 applic TP BID #60 gm 11/15/19 Allergies Allergy/AdvReac Type Severity Reaction Status Date / Time bee venom protein (honey bee) AdvReac Other (See Verified 06/18/20 22:39 Comment) General Stated Complaint: Nausea/Vomit/Diar JAYCE: 3 Review of Systems Constitutional Constitutional: Reports as per HPI, Denies chills, Denies fatigue, Denies fever(s) and Denies headache(s) ENT Ears, Nose, Mouth, and Throat: Denies headache(s) Cardiovascular Cardiovascular: Reports as per HPI, Denies chest pain and Denies dyspnea Respiratory Respiratory: Reports as per HPI, Denies cough and Denies dyspnea Gastrointestinal Gastrointestinal: Reports as per HPI Musculoskeletal Musculoskeletal: Reports as per HPI and Denies back pain Integumentary/Breasts Skin/Breast: Reports as per HPI and Denies rash Neurologic Neurologic: Reports as per HPI and Denies headache(s) Endocrine Endocrine: Denies fatigue [facility] Medical History Breast cancer In remission: 5 years Diabetes Post-menopausal bleeding Vaginal atrophy Vulvar irritation Surgical History Breast, Mastectomy right section Cholecystectomy (10/08/16) Tonsillectomy and adenoidectomy Family History Father Colon cancer Mother Diabetes Cervical cancer Maternal Cousin Breast cancer Paternal Grandfather Breast cancer Other Neoplasm Social History Smoking/Tobacco Use Status: Never Smoking risk assessment performed?: Yes Alcohol Intake: former Drug use: Never Substance use type: does not use Do you feel safe at home: Yes Do you feel safe in your relationship?: Yes Exam Const General: cooperative, healthy appearing, comfortable, no acute distress and well developed Nutritional Appearance: well nourished and overweight Orientation: alert and awake [facility] Head: normal to inspection Mouth: moist mucous membranes Resp Effort & Inspection: normal respiratory effort, able to speak in complete sentences and no respiratory distress Auscultation: clear to auscultation bilaterally, no rales, no rhonchi and no wheezes Cardio Rate: regular rate Rhythm: regular rhythm Heart Sounds: S1 normal and S2 normal GI Inspection: normal to inspection Palpation: soft, not firm, no guarding, not rigid and nontender (pt indicates entire abdomen as area of discomfort, none with palpation) Percussion: normal to percussion Auscultation: normal bowel sounds Skin General skin exam: no rashes or lesions noted Trauma: no lacerations or abrasions Neuro General: patient alert and patient awake Cognition: normal cognition Speech: speech normal Gait: normal gait Psych Appearance: grossly normal and well kempt Mental Status: mental status grossly normal Speech and Movement: speech and movement normal Course Vital Signs Vital signs: Vital Signs Temperature 36.6 C 08/15/20 12:46 Pulse 76 08/15/20 12:46 Respiratory Rate 16 08/15/20 12:46 Blood Pressure 144/87 H 08/15/20 12:46 Pulse Oximetry 96 08/15/20 12:46 Temperature 36.6 C 08/15/20 12:46 Temperature Source Skin 08/15/20 12:46 Pulse 76 08/15/20 12:46 Respiratory Rate 16 08/15/20 12:46 Blood Pressure 144/87 H 08/15/20 12:46 Blood Pressure Position Sitting 08/15/20 12:46 Pulse Oximetry 96 08/15/20 12:46 Oxygen Delivery Method Room Air 08/15/20 12:46 Oxygen Flow Rate 0 08/15/20 12:46 Pain Level 6 08/15/20 12:46
[2020-08-15] MEDS: Ondansetron O.D.T. 4 MG TABEF PO (13:14)
--- NOTE | 2020-08-15 14:09 | NUR.NOTE ---
niru PO fluids. Case discussed with GI at [facility].
== END 2020-08-15 14:09 | disposition home or self-care (01) ==
PROVIDERS: Emergency Provider Physician Assistant; PCP Physician Assistant Medical
DX: K91.0 Vomiting following gastrointestinal surgery (principal); T41.205A Adverse effect of unspecified general anesthetics, initial encounter
CPT/HCPCS: 99283

== ENCOUNTER 2020-08-23 02:19 | Outpatient (CLI) | payer MEDICAID, SELFPAY ==
[2020-08-23 11:28] LABS: Abs Immature Grans 0.01 10^3/uL (0.0-0.06); Absolute Basophil Count 0.04 10^3/uL (0.0-0.2); Absolute Eosinophil Count 0.26 10^3/uL (0.0-0.7); Absolute Lymphocyte Count 0.75 10^3/uL (1.2-3.4); Absolute Monocyte Count 0.51 10^3/uL (0.1-0.8); Eosinophils % 6.2; HCT 38.6 % (36.0-46.0); Immature Grans % 0.2; MCH 25.6 pg (27.0-33.0); MCHC 31.1 % (32.0-36.0); MCV 82.5 fL (80-95); MPV 9.9 fL (8.0-11.0); Monocytes % 12.2; Neutrophils % 62.4; Nucleated RBC 0 %; RBC 4.68 10^6/uL (3.93-5.22); RDW 16.5 % (11.7-14.6); RDW-SD 49.1 fL; WBC 4.17 10^3/uL (4.4-10.8)
[2020-08-23 11:41] LABS: ALT 38 U/L (14-59); AST 23 U/L (15-37); Albumin 3.4 g/dL (3.4-5.0); Alkaline Phosphatase 143 U/L (46-116); Anion Gap 8.1 mmol/L (3-11); BUN 12 mg/dL (7-18); Bilirubin, Total 0.8 mg/dL (0.2-1.0); CO2 26.9 mmol/L (21.0-32.0); CREATININE 0.7 mg/dL (0.55-1.02); Calcium 8.5 mg/dL (8.5-10.1); Chloride 108 mmol/L (98-107); Glucose 181 mg/dL (74-106); Potassium 3.8 mmol/L (3.5-5.1); Sodium 143 mmol/L (136-145); Total Protein 7.2 g/dL (6.4-8.2)
[2020-08-23 11:48] LABS: Diff Comment Agrees w/ Instrument; Hypochromasia 1+; Platelet Count 88 10^3/uL (130-400); Polychromasia Present
[2020-08-23 17:30] LABS: Estradiol 22 pg/mL (See Note)
[2020-08-23 18:57] LABS: FSH 14.4 mIU/mL (See Note)
== END 2020-08-23 02:20 | disposition home or self-care (01) ==
LOC: LBO 02:19
PROVIDERS: PCP Physician Assistant Medical; Visit Provider Internal Medicine
DX: C50.612 Malignant neoplasm of axillary tail of left female breast (principal); Z78.0 Asymptomatic menopausal state
CPT/HCPCS: 36415; 80053; 82670; 83001; 85025

== ENCOUNTER 2020-10-05 12:31 | Outpatient (REF) | payer MEDICAID, SELFPAY ==
[2020-10-05 14:28] LABS: Iron 51 ug/dL (50-170); Total Iron Binding Capacity 386 ug/dL (250-450); Transferrin Sat 13 % (15-50)
[2020-10-05 14:55] LABS: Ferritin 42 ng/mL (8-252)
[2020-10-05 16:45] LABS: Hemoglobin A1C 6.6 % (<5.7)
== END 2020-10-05 12:32 | disposition home or self-care (01) ==
LOC: NCHCN 12:31
PROVIDERS: PCP Physician Assistant Medical; Visit Provider Physician Assistant Medical
DX: E11.9 Type 2 diabetes mellitus without complications (principal); D62 Acute posthemorrhagic anemia
CPT/HCPCS: 82728; 83036; 83540; 83550

== ENCOUNTER 2020-11-21 16:45 | Emergency (ER) | payer MEDICAID, SELFPAY ==
[2020-11-21] VITALS (44 sets, daily range): BP systolic 111–141; BP diastolic 61–85; PULSE 78–93; RESP 12–30; TEMP 37.2; O2SAT 91–97
[2020-11-21 17:16] LABS: Bilirubin Negative (Negative); Blood Negative (Negative); Clarity Clear (Clear); Glucose Negative (Negative); Ketones Negative (Negative); Leukocyte Esterase Small (Negative); Nitrite Negative (Negative); pH 5.5 (5-8)
[2020-11-21 17:22] LABS: Bacteria Negative HPF (Negative); C & S Indicated? Yes; Casts Negative LPF (Negative); Crystals Negative HPF (Negative); Epithelial Cells Rare HPF (Negative); Mucus Negative (Negative); Other Cells Negative (Negative); RBC Negative HPF (0-2)
[2020-11-21] MEDS: Pantoprazole 40 MG VIAL 80 MG IVP (17:22)
[2020-11-21 17:30] LABS: Abs Immature Grans 0.01 10^3/uL (0.0-0.06); Absolute Basophil Count 0.02 10^3/uL (0.0-0.2); Absolute Eosinophil Count 0.16 10^3/uL (0.0-0.7); Absolute Lymphocyte Count 0.85 10^3/uL (1.2-3.4); Absolute Monocyte Count 0.59 10^3/uL (0.1-0.8); Absolute Neutrophil Count 2.76 10^3/uL (1.2-6.7); Basophils % 0.5; Eosinophils % 3.6; HCT 41.6 % (36.0-46.0); HGB 14.1 g/dL (11.2-15.7); Immature Grans % 0.2; Lymphocytes % 19.4; MCH 28.7 pg (27.0-33.0); MCHC 33.9 % (32.0-36.0); MCV 84.6 fL (80-95); MPV 10.2 fL (8.0-11.0); Monocytes % 13.4; Neutrophils % 62.9; Nucleated RBC 0 %; RBC 4.92 10^6/uL (3.93-5.22); RDW 16.1 % (11.7-14.6); RDW-SD 49.7 fL; WBC 4.39 10^3/uL (4.4-10.8)
[2020-11-21] MEDS: PANTOPRAZOLE 80 MG in Normal Saline 100 ML 10 MG IV (17:31)
[2020-11-21] MEDS: Normal Saline Flush 10 ML SYR IVP (17:33)
[2020-11-21 17:37] LABS: Prothrombin Time 10.5 sec (9.3-11.0)
[2020-11-21 17:41] LABS: BUN 7 mg/dL (7-18); CREATININE 0.8 mg/dL (0.55-1.02); Calcium 8.8 mg/dL (8.5-10.1); Glucose 133 mg/dL (74-106); Total Protein 7.1 g/dL (6.4-8.2)
[2020-11-21 17:42] LABS: ALT 45 U/L (14-59); AST 28 U/L (15-37); Albumin 3.5 g/dL (3.4-5.0); Alkaline Phosphatase 159 U/L (46-116); Anion Gap 8.5 mmol/L (3-11); Bilirubin, Total 1.1 mg/dL (0.2-1.0); CO2 27.5 mmol/L (21.0-32.0); Chloride 107 mmol/L (98-107); Potassium 3.5 mmol/L (3.5-5.1); Sodium 143 mmol/L (136-145); Troponin I < 0.05 ng/mL (<0.06)
[2020-11-21 17:55] LABS: Diff Comment PLT Morph Reviewed; Platelet Count 83 10^3/uL (130-400); RBC Morphology Normal
--- NOTE | 2020-11-21 18:03 | ED.GENADUL_ITS ---
Discharge Plan Disposition Patient Disposition: AGAINST MEDICAL ADVICE Condition: Serious Discharge Details Clinical Impression: Acute upper gastrointestinal bleeding Primary Care Provider: Munira Kuo ED Provider: Hong Brooks Home Meds and New Rx's Prescriptions: No Action metformin 500 mg tablet 500 mg PO DAILY RF: 0 exemestane 25 mg tablet 25 mg PO DAILY RF: 0 venlafaxine [Effexor XR] 37.5 MG capsule,extended release 24hr 75 mg PO DAILY RF: 0 nystatin 100,000 unit/gram cream 1 applic TP BID Qty: 30 RF: 2 triamcinolone acetonide 0.1 % cream 1 applic TP BID Qty: 30 RF: 1 clobetasol [Temovate] 0.05 % ointment 1 applic TP BID Qty: 60 RF: 1 ferrous gluconate 324 mg (38 mg iron) tablet 324 mg PO DAILY RF: 0 Discharge Instructions Additional Instructions: Please return to the emergency department at any time for further treatment as recommended. Medical Decision Making 55-year-old female with history of diabetes, breast cancer in remission status post chemo and radiation, liver fibrosis/cirrhosis, esophageal varices with upper GI bleed requiring banding, here with black stool and blood in her stool over the past 1 week. Patient is hemodynamically stable. Airway intact. I will initiate treatment with Protonix IV bolus and infusion. 18:05 --labs reviewed and hemoglobin noted to be normal at this time. I contacted [facility] transfer center to request emergent transfer. Awaiting callback. I responded to Rah ansari on med/surg floor and when returned to ED noted that [facility] has still not returned transfer request. I called [facility] transfer center to request update. Awaiting call back. --I have initiated octreotide IV bolus and infusion. -- I spoke with [facility] transfer center and they were unable accept the patient in transfer because of capacity. He also notes [facility] that are passing unable to patient. I then called [facility] requested transfer and fortunately they are unable to accept patient as they are at capacity. I then called [facility] and requested transfer and awaiting callback. 20:00 --called [facility] request transfer to floor so they do not GI capability at this time. Still awaiting callback from [facility]. I will also call [facility] Gen. 2012 -- Patient experiencing nausea and feels flushed after initiation of octreotide. Octreotide held. Will give zofran 4mg IV. 2022 --[facility] refusing to accept patient in transfer noting at disaster capacity. 2024 --[facility] not [facility] but is checking other site. 2041 --I called [facility] and [facility], unfortunately they are at capacity and unable to accept. [phone] --additional hospitals including [facility] and [facility] and they were unable to accept the patient in transfer. [facility] emergency department able to accept the patient in transfer admit Dr. Rodrigues, gastroenterology inspector packer glass container, will accept the patient in transfer. I discussed transfer plan with the patient and he is refusing and wishes to leave AGAINST MEDICAL ADVICE. She is intending to have her drive her to [facility] emergency department. I advised her to [facility] with no capacity and that I could not assist in arranging this transportation and recommended she be officially transferred to [facility] and she refused. Lab Data Lab results reviewed: Yes I reviewed the patient's lab results. Labs: 11/21/20 17:02 Urine - Reflex from Ua Urine Culture - Pending Laboratory Tests Range/Units 11/21/20 11/21/20 11/21/20 17:02 17:08 17:08 WBC (4.4-10.8) 10^3/uL 4.39 L RBC (3.93-5.22) 10^6/uL 4.92 Hgb (11.2-15.7) g/dL 14.1 Hct (36.0-46.0) % 41.6 MCV (80-95) fL 84.6 MCH (27.0-33.0) pg 28.7 MCHC (32.0-36.0) % 33.9 RDW (11.7-14.6) % 16.1 H Plt Count (130-400) 10^3/uL 83 L MPV (8.0-11.0) fL 10.2 Immature Gran % 0.2 Neutrophils % 62.9 Lymphocytes % 19.4 Monocytes % 13.4 Eosinophils % 3.6 Basophils % 0.5 Nucleated RBC % % 0 Absolute Neutrophils (1.2-6.7) 10^3/uL 2.76 Absolute Lymphocytes (1.2-3.4) 10^3/uL 0.85 L Absolute Monocytes (0.1-0.8) 10^3/uL 0.59 Absolute Eosinophils (0.0-0.7) 10^3/uL 0.16 Absolute Basophils (0.0-0.2) 10^3/uL 0.02 RBC Morphology Normal PT (9.3-11.0) sec INR (0.9-1.1) Sodium (136-145) mmol/L 143 Potassium (3.5-5.1) mmol/L 3.5 Chloride (98-107) mmol/L 107 Carbon Dioxide (21.0-32.0) mmol/L 27.5 Anion Gap (3-11) mmol/L 8.5 BUN (7-18) mg/dL 7 Creatinine (0.55-1.02) mg/dL 0.8 Estimated GFR/1.73 m2 (mL/min/1.73m2) >= 60.00 Glucose (74-106) mg/dL 133 H Calcium (8.5-10.1) mg/dL 8.8 Total Bilirubin (0.2-1.0) mg/dL 1.1 H AST (15-37) U/L 28 ALT (14-59) U/L 45 Alkaline Phosphatase (46-116) U/L 159 H Troponin I (<0.06) ng/mL < 0.05 Total Protein (6.4-8.2) g/dL 7.1 Albumin (3.4-5.0) g/dL 3.5 Urine Color (Yellow) Yellow Urine Clarity (Clear) Clear Urine pH (5-8) 5.5 Ur Specific [place] (1.005-1.025) 1.020 Urine Protein (Negative) mg/dL Negative Urine Ketones (Negative) mg/dL Negative Urine Blood (Negative) Negative Urine Nitrite (Negative) Negative Urine Bilirubin (Negative) Negative Urine Urobilinogen (Up TO 0.2) EU/dL 2.0 H Ur Leukocyte Esterase (Negative) Small H Urine RBC (0-2) HPF Negative Urine WBC (0-5) HPF 3-5 Ur Epithelial Cells (Negative) HPF Rare Urine Crystals (Negative) HPF Negative Urine Bacteria (Negative) HPF Negative Urine Casts (Negative) LPF Negative Urine Mucus (Negative) Negative Urine Other (Negative) Negative Ur Culture Indicated? Yes Urine Glucose (Negative) mg/dL Negative COVID-19 Source Patient ABO/Rh Antibody Screen Range/Units 11/21/20 11/21/20 11/21/20 17:08 17:08 20:45 WBC (4.4-10.8) 10^3/uL RBC (3.93-5.22) 10^6/uL Hgb (11.2-15.7) g/dL Hct (36.0-46.0) % MCV (80-95) fL MCH (27.0-33.0) pg MCHC (32.0-36.0) % RDW (11.7-14.6) % Plt Count (130-400) 10^3/uL MPV (8.0-11.0) fL Immature Gran % Neutrophils % Lymphocytes % Monocytes % Eosinophils % Basophils % Nucleated RBC % % Absolute Neutrophils (1.2-6.7) 10^3/uL Absolute Lymphocytes (1.2-3.4) 10^3/uL Absolute Monocytes (0.1-0.8) 10^3/uL Absolute Eosinophils (0.0-0.7) 10^3/uL Absolute Basophils (0.0-0.2) 10^3/uL RBC Morphology PT (9.3-11.0) sec 10.5 INR (0.9-1.1) 1.0 Sodium (136-145) mmol/L Potassium (3.5-5.1) mmol/L Chloride (98-107) mmol/L Carbon Dioxide (21.0-32.0) mmol/L Anion Gap (3-11) mmol/L BUN (7-18) mg/dL Creatinine (0.55-1.02) mg/dL Estimated GFR/1.73 m2 (mL/min/1.73m2) Glucose (74-106) mg/dL Calcium (8.5-10.1) mg/dL Total Bilirubin (0.2-1.0) mg/dL AST (15-37) U/L ALT (14-59) U/L Alkaline Phosphatase (46-116) U/L Troponin I (<0.06) ng/mL Total Protein (6.4-8.2) g/dL Albumin (3.4-5.0) g/dL Urine Color (Yellow) Urine Clarity (Clear) Urine pH (5-8) Ur Specific [place] (1.005-1.025) Urine Protein (Negative) mg/dL Urine Ketones (Negative) mg/dL Urine Blood (Negative) Urine Nitrite (Negative) Urine Bilirubin (Negative) Urine Urobilinogen (Up TO 0.2) EU/dL Ur Leukocyte Esterase (Negative) Urine RBC (0-2) HPF Urine WBC (0-5) HPF Ur Epithelial Cells (Negative) HPF Urine Crystals (Negative) HPF Urine Bacteria (Negative) HPF Urine Casts (Negative) LPF Urine Mucus (Negative) Urine Other (Negative) Ur Culture Indicated? Urine Glucose (Negative) mg/dL COVID-19 Source Nasal/Nares Patient ABO/Rh O Positive Antibody Screen NEGATIVE HPI General Mode of arrival: ambulatory . Date/Time Provider Initiated Documentation: 11/21/20 17:00 . Limitations to Documentation: no limitations . Information obtained by: patient . HPI Narrative: 55-year-old female with history of diabetes, breast cancer status post chemo and radiation, now in remissions, liver fibrosis and steatohepatitis ptosis, upper GI bleed secondary to varices requiring banding in the recent past, here with chief complaint of rectal bleeding. Patient notes black loose stool as well as bloody stool persistent over the past 1 week. Symptoms are moderate with no modifiers. She does have associated nausea with no vomiting. She states that she has chronic unchanged mild abdominal discomfort. Patient has associated generalized weakness. Related Data Home Medications Medication Instructions Recorded Confirmed venlafaxine [Effexor XR] 75 mg PO DAILY tab-cap 01/06/13 11/21/20 metformin 500 mg tablet 500 mg PO DAILY 10/10/19 11/21/20 exemestane 25 mg tablet 25 mg PO DAILY 10/25/19 11/21/20 nystatin 100,000 unit/gram topical 1 applic TP BID #30 gm 10/25/19 11/21/20 cream triamcinolone acetonide 0.1 % 1 applic TP BID #30 gm 10/25/19 11/21/20 topical cream clobetasol 0.05 % topical ointment 1 applic TP BID #60 gm 11/15/19 11/21/20 ferrous gluconate 324 mg PO DAILY 11/21/20 11/21/20 Previous Rx's Medication Instructions Recorded nystatin 100,000 unit/gram topical 1 applic TP BID #30 gm 10/25/19 cream triamcinolone acetonide 0.1 % 1 applic TP BID #30 gm 10/25/19 topical cream clobetasol 0.05 % topical ointment 1 applic TP BID #60 gm 11/15/19 Allergies Allergy/AdvReac Type Severity Reaction Status Date / Time bee venom protein (honey bee) AdvReac Other (See Verified 11/21/20 16:53 Comment) General Stated Complaint: Abd Prob JAYCE: 2 Review of Systems All systems reviewed & are unremarkable except as noted in HPI and below Constitutional Constitutional: Reports as per HPI Gastrointestinal Gastrointestinal: Reports as per HPI [facility] Medical History Breast cancer In remission: 5 years Diabetes Post-menopausal bleeding Vaginal atrophy Vulvar irritation Surgical History Breast, Mastectomy right section Cholecystectomy (10/08/16) Tonsillectomy and adenoidectomy Family History Father Colon cancer Mother Diabetes Cervical cancer Maternal Cousin Breast cancer Paternal Grandfather Breast cancer Other Neoplasm Social History Smoking/Tobacco Use Status: Never Smoking risk assessment performed?: Yes Alcohol Intake: former Drug use: Never Substance use type: does not use Do you feel safe at home: Yes Do you feel safe in your relationship?: Yes Exam Const General: cooperative and no acute distress HENMT Mouth: moist mucous membranes Eyes Conjunctivae: normal conjunctivae Sclera: normal sclerae EOM: EOM intact bilaterally Neck Neck: trachea midline Resp Auscultation: clear to auscultation bilaterally, no rales, no rhonchi and no wheezes Cardio Rate: regular rate and not tachycardic Rhythm: regular rhythm GI Palpation: soft, not firm, no guarding, no masses, not rigid and nontender Skin General skin exam: no rashes or lesions noted Neuro General: patient alert, patient awake, patient oriented x3 and tone normal Extrem General: no edema Psych Appearance: grossly normal Mental Status: mental status grossly normal Course Vital Signs Vital signs: Vital Signs Temperature 37.2 C 11/21/20 16:50 Pulse 86 11/21/20 16:50 Respiratory Rate 18 11/21/20 16:50 Blood Pressure 141/84 H 11/21/20 16:50 Pulse Oximetry 97 11/21/20 16:50 Temperature 37.2 C 11/21/20 16:50 Temperature Source Tympanic 11/21/20 16:50 Pulse 86 11/21/20 16:50 Respiratory Rate 18 11/21/20 16:50 Respiratory Effort 11/21/20 17:14 Blood Pressure 141/84 H 11/21/20 16:50 Pulse Oximetry 93 11/21/20 17:50 Oxygen Delivery Method Room Air 11/21/20 16:50 Oxygen Flow Rate 0 11/21/20 16:50 Pain Level 8 11/21/20 16:50 Comment 11/21/20 16:50 Lab/Test Results Lab/Test Results: 11/21/20 17:02 Urine - Reflex from Ua Urine Culture - Pending Laboratory Tests Range/Units 11/21/20 11/21/20 11/21/20 17:02 17:08 17:08 WBC (4.4-10.8) 10^3/uL 4.39 L RBC (3.93-5.22) 10^6/uL 4.92 Hgb (11.2-15.7) g/dL 14.1 Hct (36.0-46.0) % 41.6 MCV (80-95) fL 84.6 MCH (27.0-33.0) pg 28.7 MCHC (32.0-36.0) % 33.9 RDW (11.7-14.6) % 16.1 H Plt Count (130-400) 10^3/uL 83 L MPV (8.0-11.0) fL 10.2 Immature Gran % 0.2 Neutrophils % 62.9 Lymphocytes % 19.4 Monocytes % 13.4 Eosinophils % 3.6 Basophils % 0.5 Nucleated RBC % % 0 Absolute Neutrophils (1.2-6.7) 10^3/uL 2.76 Absolute Lymphocytes (1.2-3.4) 10^3/uL 0.85 L Absolute Monocytes (0.1-0.8) 10^3/uL 0.59 Absolute Eosinophils (0.0-0.7) 10^3/uL 0.16 Absolute Basophils (0.0-0.2) 10^3/uL 0.02 RBC Morphology Normal PT (9.3-11.0) sec INR (0.9-1.1) Sodium (136-145) mmol/L 143 Potassium (3.5-5.1) mmol/L 3.5 Chloride (98-107) mmol/L 107 Carbon Dioxide (21.0-32.0) mmol/L 27.5 Anion Gap (3-11) mmol/L 8.5 BUN (7-18) mg/dL 7 Creatinine (0.55-1.02) mg/dL 0.8 Estimated GFR/1.73 m2 (mL/min/1.73m2) >= 60.00 Glucose (74-106) mg/dL 133 H Calcium (8.5-10.1) mg/dL 8.8 Total Bilirubin (0.2-1.0) mg/dL 1.1 H AST (15-37) U/L 28 ALT (14-59) U/L 45 Alkaline Phosphatase (46-116) U/L 159 H Troponin I (<0.06) ng/mL < 0.05 Total Protein (6.4-8.2) g/dL 7.1 Albumin (3.4-5.0) g/dL 3.5 Urine Color (Yellow) Yellow Urine Clarity (Clear) Clear Urine pH (5-8) 5.5 Ur Specific [place] (1.005-1.025) 1.020 Urine Protein (Negative) mg/dL Negative Urine Ketones (Negative) mg/dL Negative Urine Blood (Negative) Negative Urine Nitrite (Negative) Negative Urine Bilirubin (Negative) Negative Urine Urobilinogen (Up TO 0.2) EU/dL 2.0 H Ur Leukocyte Esterase (Negative) Small H Urine RBC (0-2) HPF Negative Urine WBC (0-5) HPF 3-5 Ur Epithelial Cells (Negative) HPF Rare Urine Crystals (Negative) HPF Negative Urine Bacteria (Negative) HPF Negative Urine Casts (Negative) LPF Negative Urine Mucus (Negative) Negative Urine Other (Negative) Negative Ur Culture Indicated? Yes Urine Glucose (Negative) mg/dL Negative Range/Units 11/21/20 17:08 WBC (4.4-10.8) 10^3/uL RBC (3.93-5.22) 10^6/uL Hgb (11.2-15.7) g/dL Hct (36.0-46.0) % MCV (80-95) fL MCH (27.0-33.0) pg MCHC (32.0-36.0) % RDW (11.7-14.6) % Plt Count (130-400) 10^3/uL MPV (8.0-11.0) fL Immature Gran % Neutrophils % Lymphocytes % Monocytes % Eosinophils % Basophils % Nucleated RBC % % Absolute Neutrophils (1.2-6.7) 10^3/uL Absolute Lymphocytes (1.2-3.4) 10^3/uL Absolute Monocytes (0.1-0.8) 10^3/uL Absolute Eosinophils (0.0-0.7) 10^3/uL Absolute Basophils (0.0-0.2) 10^3/uL RBC Morphology PT (9.3-11.0) sec 10.5 INR (0.9-1.1) 1.0 Sodium (136-145) mmol/L Potassium (3.5-5.1) mmol/L Chloride (98-107) mmol/L Carbon Dioxide (21.0-32.0) mmol/L Anion Gap (3-11) mmol/L BUN (7-18) mg/dL Creatinine (0.55-1.02) mg/dL Estimated GFR/1.73 m2 (mL/min/1.73m2) Glucose (74-106) mg/dL Calcium (8.5-10.1) mg/dL Total Bilirubin (0.2-1.0) mg/dL AST (15-37) U/L ALT (14-59) U/L Alkaline Phosphatase (46-116) U/L Troponin I (<0.06) ng/mL Total Protein (6.4-8.2) g/dL Albumin (3.4-5.0) g/dL Urine Color (Yellow) Urine Clarity (Clear) Urine pH (5-8) Ur Specific [place] (1.005-1.025) Urine Protein (Negative) mg/dL Urine Ketones (Negative) mg/dL Urine Blood (Negative) Urine Nitrite (Negative) Urine Bilirubin (Negative) Urine Urobilinogen (Up TO 0.2) EU/dL Ur Leukocyte Esterase (Negative) Urine RBC (0-2) HPF Urine WBC (0-5) HPF Ur Epithelial Cells (Negative) HPF Urine Crystals (Negative) HPF Urine Bacteria (Negative) HPF Urine Casts (Negative) LPF Urine Mucus (Negative) Urine Other (Negative) Ur Culture Indicated? Urine Glucose (Negative) mg/dL Critical Care Time Critical Care Time Critical Care Time: Yes Total Critical Care Time: 40 Attestation: I spent greater than 40 minutes addressing this patient's immediate life threats. Please see MDM section of note. This time was spent engaged in work directly related to the patient's care, exclusive of separate procedures, and failure to initiate these interventions would have likely resulted in clinically significant or life threatening deterioration in the patient's condition.
[2020-11-21] MEDS: Ondansetron 4 MG/2 ML VIAL IVP (20:17)
[2020-11-21 20:56] LABS: Source Nasal/Nares
[2020-11-21 22:22] LABS: COVID-19 PCR Negative (Negative)
--- NOTE | 2020-11-24 08:27 | NUR.NOTE ---
notified patient that covid test was negative.
== END 2020-11-21 21:41 | disposition left against medical advice (07) ==
PROVIDERS: Emergency Provider Student in an Organized Health Care Education/Training Program; PCP Physician Assistant Medical
DX: K92.2 Gastrointestinal hemorrhage, unspecified (principal); Z53.29 Procedure and treatment not carried out because of patient's decision for other reasons
CPT/HCPCS: 36415; 80053; 86850; 86900; 86901; 87635; 96365; 96366; 96375; 99284; 81003; 81015; 84484; 85025; 85610; 87086; J2354; J2405

== ENCOUNTER 2021-03-22 02:51 | Outpatient (CLI) | payer MEDICAID, SELFPAY ==
[2021-03-22 09:59] LABS: Abs Immature Grans 0.01 10^3/uL (0.0-0.06); Absolute Basophil Count 0.02 10^3/uL (0.0-0.2); Absolute Lymphocyte Count 0.72 10^3/uL (1.2-3.4); Absolute Monocyte Count 0.49 10^3/uL (0.1-0.8); Basophils % 0.5; Eosinophils % 2.6; HCT 38.4 % (36.0-46.0); HGB 13.3 g/dL (11.2-15.7); Immature Grans % 0.3; Lymphocytes % 18.5; MCH 30.2 pg (27.0-33.0); MCHC 34.6 % (32.0-36.0); MCV 87.1 fL (80-95); MPV 9.8 fL (8.0-11.0); Monocytes % 12.6; Neutrophils % 65.5; Nucleated RBC 0 %; RBC 4.41 10^6/uL (3.93-5.22); RDW 14.4 % (11.7-14.6); RDW-SD 45.5 fL
[2021-03-22 10:00] LABS: Absolute Neutrophil Count 2.55 10^3/uL (1.2-6.7)
[2021-03-22 10:06] LABS: ALT 35 U/L (14-59); AST 25 U/L (15-37); Albumin 3.1 g/dL (3.4-5.0); Alkaline Phosphatase 176 U/L (46-116); Anion Gap 9.3 mmol/L (3-11); BUN 11 mg/dL (7-18); Bilirubin, Total 0.9 mg/dL (0.2-1.0); CO2 23.7 mmol/L (21.0-32.0); CREATININE 0.5 mg/dL (0.55-1.02); Chloride 108 mmol/L (98-107); Glucose 172 mg/dL (74-106); Potassium 3.9 mmol/L (3.5-5.1); Sodium 141 mmol/L (136-145); Total Protein 6.5 g/dL (6.4-8.2)
[2021-03-22 10:09] LABS: Platelet Count 68 10^3/uL (130-400)
[2021-03-22 10:10] LABS: Diff Comment Diff Reviewed; RBC Morphology Normal
== END 2021-03-22 02:52 | disposition home or self-care (01) ==
LOC: LBO 02:51
PROVIDERS: PCP Physician Assistant Medical; Visit Provider Internal Medicine
DX: C50.612 Malignant neoplasm of axillary tail of left female breast (principal)
CPT/HCPCS: 36415; 80053; 85025

== ENCOUNTER 2021-04-17 01:32 | Outpatient (CLI) | payer MEDICAID, SELFPAY ==
--- NOTE | 2021-04-17 17:30 | DI.DEXA_ITS ---
Exam(s) XR DEXA BONE DENSITY W/WO KENNY EXAM: XR DEXA BONE DENSITY W/WO KENNY CLINICAL HISTORY: HX BREAST CANCER Z85.3, ON A1 THERAPY, ESTROGEN RECEPTOR STATUS C50.612 TECHNIQUE: OraMetrix Horizon C densitometer COMPARISON: DX XR DEXA BONE DENSITY W/WO KENNY from 06/08/2018 FINDINGS: Lateral view of the thoracic and lumbar spine shows no evidence of compression fractures. Bone mineral density measurements of the lumbar spine correspond to a total T-score of 0.4, in the n ormal range, not significantly changed from 2019 Bone mineral density measurements of the left hip correspond to a total T-score of -0.2. The femora l neck T-score is -0.7, in the normal range. This represents a 7.6 percent decrease when compared w ith 2019.. The right forearm bone mineral density measurements correspond to a T-score of the distal 3rd of -1. 5, in the osteopenic range. This represents an 8.5 percent decrease when compared with 2019.. IMPRESSION: Osteopenia of the right forearm. Normal bone mineral density of the left hip and lumbar spine.
== END 2021-04-17 01:52 ==
PROVIDERS: PCP Physician Assistant Medical; Visit Provider Nurse Practitioner Adult Health
DX: M85.88 Other specified disorders of bone density and structure, other site (principal); Z85.3 Personal history of malignant neoplasm of breast; Z79.899 Other long term (current) drug therapy
CPT/HCPCS: 77080

== ENCOUNTER 2021-06-19 15:37 | Outpatient (REF) | payer MEDICAID, SELFPAY ==
[2021-06-19 21:20] LABS: Abs Immature Grans 0.01 10^3/uL (0.0-0.06); Absolute Basophil Count 0.03 10^3/uL (0.0-0.2); Absolute Eosinophil Count 0.22 10^3/uL (0.0-0.7); Absolute Lymphocyte Count 0.99 10^3/uL (1.2-3.4); Absolute Monocyte Count 0.58 10^3/uL (0.1-0.8); Basophils % 0.6; Eosinophils % 4.7; HCT 42.6 % (36.0-46.0); HGB 14.3 g/dL (11.2-15.7); Immature Grans % 0.2; Lymphocytes % 20.9; MCH 29.9 pg (27.0-33.0); MCHC 33.6 % (32.0-36.0); MCV 88.9 fL (80-95); MPV 11.2 fL (8.0-11.0); Monocytes % 12.3; Neutrophils % 61.3; Nucleated RBC 0 %; Platelet Count 77 10^3/uL (130-400); RBC 4.79 10^6/uL (3.93-5.22); RDW 14.5 % (11.7-14.6); RDW-SD 46.4 fL; WBC 4.73 10^3/uL (4.4-10.8)
[2021-06-19 21:43] LABS: ALT 43 U/L (14-59); AST 31 U/L (15-37); Albumin 3.4 g/dL (3.4-5.0); Alkaline Phosphatase 159 U/L (46-116); Anion Gap 9.8 mmol/L (3-11); BUN 9 mg/dL (7-18); Bilirubin, Total 1.6 mg/dL (0.2-1.0); CO2 26.2 mmol/L (21.0-32.0); CREATININE 0.7 mg/dL (0.55-1.02); Calcium 8.6 mg/dL (8.5-10.1); Chloride 105 mmol/L (98-107); Glucose 142 mg/dL (74-106); Potassium 3.5 mmol/L (3.5-5.1); Sodium 141 mmol/L (136-145); Total Protein 6.4 g/dL (6.4-8.2)
== END 2021-06-19 15:38 | disposition home or self-care (01) ==
LOC: NCHCN 15:37
PROVIDERS: PCP Physician Assistant Medical; Visit Provider Physician Assistant Medical
DX: E11.9 Type 2 diabetes mellitus without complications (principal)
CPT/HCPCS: 80053; 83036; 84443; 85025

== ENCOUNTER 2021-11-05 02:50 | Outpatient (CLI) | payer MEDICAID, SELFPAY ==
[2021-11-05 08:02] LABS: Abs Immature Grans 0.02 10^3/uL (0.0-0.06); Absolute Basophil Count 0.02 10^3/uL (0.0-0.2); Absolute Eosinophil Count 0.15 10^3/uL (0.0-0.7); Absolute Lymphocyte Count 0.73 10^3/uL (1.2-3.4); Absolute Neutrophil Count 2.47 10^3/uL (1.2-6.7); Basophils % 0.5; HCT 40.5 % (36.0-46.0); Immature Grans % 0.5; Lymphocytes % 19.3; MCH 30.7 pg (27.0-33.0); MCHC 34.6 % (32.0-36.0); MCV 89 fL (80-95); MPV 9.8 fL (8.0-11.0); Monocytes % 10.6; Neutrophils % 65.1; RBC 4.56 10^6/uL (3.93-5.22); RDW-SD 45.6 fL; WBC 3.79 10^3/uL (4.4-10.8)
[2021-11-05 08:16] LABS: Diff Comment Diff Reviewed; Platelet Count 68 10^3/uL (130-400); RBC Morphology Normal
[2021-11-05 08:21] LABS: ALT 38 U/L (14-59); AST 27 U/L (15-37); Albumin 3.2 g/dL (3.4-5.0); Alkaline Phosphatase 153 U/L (46-116); Anion Gap 7.4 mmol/L (3-11); BUN 12 mg/dL (7-18); Bilirubin, Total 1.5 mg/dL (0.2-1.0); CO2 28.6 mmol/L (21.0-32.0); CREATININE 0.5 mg/dL (0.55-1.02); Calcium 8.2 mg/dL (8.5-10.1); Chloride 106 mmol/L (98-107); Glucose 176 mg/dL (74-106); Potassium 3.5 mmol/L (3.5-5.1); Sodium 142 mmol/L (136-145); Total Protein 6.5 g/dL (6.4-8.2)
== END 2021-11-05 02:51 | disposition home or self-care (01) ==
PROVIDERS: PCP Physician Assistant Medical; Visit Provider Nurse Practitioner Family
DX: C50.911 Malignant neoplasm of unspecified site of right female breast (principal)
CPT/HCPCS: 36415; 80053; 85025

== ENCOUNTER 2022-07-17 04:28 | Outpatient (CLI) | payer MEDICAID, SELFPAY ==
[2022-07-17 08:28] LABS: Abs Immature Grans 0.01 10^3/uL (0.0-0.06); Absolute Basophil Count 0.03 10^3/uL (0.0-0.2); Absolute Eosinophil Count 0.14 10^3/uL (0.0-0.7); Absolute Lymphocyte Count 0.67 10^3/uL (1.2-3.4); Absolute Monocyte Count 0.41 10^3/uL (0.1-0.8); Absolute Neutrophil Count 2.38 10^3/uL (1.2-6.7); Basophils % 0.8; Eosinophils % 3.8; HCT 40.1 % (36.0-46.0); HGB 13.9 g/dL (11.2-15.7); Immature Grans % 0.3; Lymphocytes % 18.4; MCHC 34.7 % (32.0-36.0); MCV 90 fL (80-95); MPV 9.7 fL (8.0-11.0); Monocytes % 11.3; Neutrophils % 65.4; RBC 4.48 10^6/uL (3.93-5.22); RDW 15.3 % (11.7-14.6); RDW-SD 50.2 fL; WBC 3.64 10^3/uL (4.4-10.8)
[2022-07-17 08:40] LABS: INR 1.1 (0.9-1.1); Prothrombin Time 11.4 sec (9.3-11.0)
[2022-07-17 08:46] LABS: ALT 75 U/L (14-59); AST 64 U/L (15-37); Albumin 2.7 g/dL (3.4-5.0); Alkaline Phosphatase 222 U/L (46-116); Anion Gap 6.4 mmol/L (3-11); BUN 7 mg/dL (7-18); Bilirubin, Total 1.5 mg/dL (0.2-1.0); CO2 27.6 mmol/L (21.0-32.0); CREATININE 0.6 mg/dL (0.55-1.02); Calcium 8.3 mg/dL (8.5-10.1); Chloride 106 mmol/L (98-107); Estimated GFR 103.98 (mL/min/1.73m2); Glucose 150 mg/dL (74-106); Potassium 3.7 mmol/L (3.5-5.1); Sodium 140 mmol/L (136-145); Total Protein 6.5 g/dL (6.4-8.2)
[2022-07-17 09:28] LABS: Platelet Count 81 10^3/uL (130-400)
== END 2022-07-17 04:29 | disposition home or self-care (01) ==
PROVIDERS: PCP Physician Assistant Medical; Visit Provider Nurse Practitioner Adult Health
DX: R19.7 Diarrhea, unspecified (principal); K74.60 Unspecified cirrhosis of liver
CPT/HCPCS: 36415; 80053; 85025; 85610

== ENCOUNTER 2022-09-09 15:20 | Outpatient (REF) | payer MEDICAID, SELFPAY ==
[2022-09-09 16:16] LABS: Hemoglobin A1C 5.5 % (<5.7)
[2022-09-09 16:23] LABS: Calculated LDL 84 mg/dL (<100); Cholesterol 163 mg/dL (<200); HDL Cholesterol 67 mg/dL (40-60); Triglyceride 61 mg/dL (<150)
== END 2022-09-09 15:21 | disposition home or self-care (01) ==
LOC: NCHCN 15:20
PROVIDERS: PCP Physician Assistant Medical; Visit Provider Physician Assistant Medical
DX: E11.9 Type 2 diabetes mellitus without complications (principal); M54.89 Other dorsalgia; R82.998 Other abnormal findings in urine
CPT/HCPCS: 80061; 83036; 87086

== ENCOUNTER 2023-06-30 03:21 | Outpatient (CLI) | payer OTHER, MEDICAID, SELFPAY ==
[2023-06-30 08:58] LABS: Abs Immature Grans 0.02 10^3/uL (0.0-0.06); HCT 38.4 % (36.0-46.0); HGB 13.4 g/dL (11.2-15.7); MCH 30.5 pg (27.0-33.0); MCHC 34.9 % (32.0-36.0); MCV 88 fL (80-95); MPV 10.4 fL (8.0-11.0); RBC 4.39 10^6/uL (3.93-5.22); RDW 14.7 % (11.7-14.6); RDW-SD 46.5 fL; WBC 3.67 10^3/uL (4.4-10.8)
[2023-06-30 09:22] LABS: ALT 71 U/L (14-59); AST 77 U/L (15-37); Albumin 2.7 g/dL (3.4-5.0); Alkaline Phosphatase 194 U/L (46-116); Anion Gap 9.6 mmol/L (3-11); BUN 5 mg/dL (7-18); Bilirubin, Total 1.9 mg/dL (0.2-1.0); CO2 27.4 mmol/L (21.0-32.0); CREATININE 0.7 mg/dL (0.55-1.02); Chloride 107 mmol/L (98-107); Estimated GFR 99.57 (mL/min/1.73m2); Glucose 194 mg/dL (74-106); Potassium 3.1 mmol/L (3.5-5.1); Sodium 144 mmol/L (136-145); Total Protein 6.1 g/dL (6.4-8.2)
[2023-06-30 09:40] LABS: Absolute Neutrophil Count 2.61 10^3/uL (1.2-6.7); Platelet Count 61 10^3/uL (130-400)
[2023-06-30 09:41] LABS: Absolute Eosinophil Count 0.07 10^3/uL (0.0-0.7); Absolute Lymphocyte Count 0.84 10^3/uL (1.2-3.4); Absolute Monocyte Count 0.15 10^3/uL (0.1-0.8); Diff Comment Manual Differential; Polychromasia Present
== END 2023-06-30 03:22 | disposition home or self-care (01) ==
PROVIDERS: PCP Physician Assistant Medical; Visit Provider Nurse Practitioner
DX: C50.911 Malignant neoplasm of unspecified site of right female breast (principal)
CPT/HCPCS: 36415; 80053; 85025

== ENCOUNTER 2024-06-23 01:50 | Outpatient (CLI) | payer OTHER, SELFPAY ==
--- NOTE | 2024-06-23 | DI.DEXA_ITS ---
Exam(s) XR DEXA BONE DENSITY W/WO KENNY EXAM: XR DEXA BONE DENSITY W/WO KENNY CLINICAL HISTORY: Stage II breast CA, Rt, C50.911; osteopenia TECHNIQUE: Hologic Horizon C densitometer analysis of left hip, lumbar spine and right forearm. La teral survey image of the thoracic and lumbar spine. COMPARISON: DX XR DEXA BONE DENSITY W/WO KENNY from 06/08/2018 CR XR DEXA BONE DENSITY W/WO KENNY from 04/17/2021 FINDINGS: Lateral view of the thoracic and lumbar spine shows no evidence of compression fractures. Bone mineral density measurements of the lumbar spine correspond to a total T-score of 0.8, in the n ormal range. This represents a 4 percent decrease from 2020 and 4.9 percent decrease from 2019. Bone mineral density measurements of the left hip correspond to a total T-score of 0.8. This repres ents a 13 percent increase from 2020 and a 4.5 percent increase compared with 2019.. The femoral nec k T-score is -0.2, in the normal range.. The right forearm bone mineral density measurements correspond to a T-score of the distal 3rd of -1. 3, in the osteopenic range. This represents a 2.2 percent increase from 2020 and a 6.5 percent decre ase from 2019.. IMPRESSION: Normal bone mineral density of the spine and hip. Osteopenia of the forearm.
== END 2024-06-23 02:10 ==
LOC: DI 01:50
PROVIDERS: PCP Physician Assistant Medical; Visit Provider Nurse Practitioner
DX: C50.911 Malignant neoplasm of unspecified site of right female breast (principal)
CPT/HCPCS: 77080

== ENCOUNTER 2024-06-23 02:55 | Outpatient (CLI) | payer OTHER, SELFPAY ==
[2024-06-23 13:16] LABS: Abs Immature Grans 0.01 10^3/uL (0.0-0.06); Absolute Basophil Count 0.02 10^3/uL (0.0-0.2); Absolute Eosinophil Count 0.18 10^3/uL (0.0-0.7); Absolute Lymphocyte Count 0.66 10^3/uL (1.2-3.4); Absolute Neutrophil Count 2.46 10^3/uL (1.2-6.7); Basophils % 0.5 %; Eosinophils % 4.8 %; HCT 37.3 % (36.0-46.0); HGB 12.5 g/dL (11.2-15.7); Immature Grans % 0.3 %; Lymphocytes % 17.7 %; MCH 29.6 pg (27.0-33.0); MCHC 33.5 % (32.0-36.0); MCV 88 fL (80-95); MPV 10.2 fL (8.0-11.0); Monocytes % 10.7 %; RBC 4.22 10^6/uL (3.93-5.22); RDW 15.6 % (11.7-14.6); RDW-SD 49.2 fL; WBC 3.73 10^3/uL (4.4-10.8)
[2024-06-23 13:42] LABS: Diff Comment PLT Morph Reviewed; Platelet Count 60 10^3/uL (130-400)
[2024-06-23 13:45] LABS: ALT 45 U/L (14-59); AST 56 U/L (15-37); Albumin 2.7 g/dL (3.4-5.0); Alkaline Phosphatase 180 U/L (46-116); Anion Gap 2.6 mmol/L (3-11); BUN 8 mg/dL (7-18); CO2 30.4 mmol/L (21.0-32.0); CREATININE 0.4 mg/dL (0.55-1.02); Calcium 8.4 mg/dL (8.5-10.1); Chloride 109 mmol/L (98-107); Estimated GFR 113.24 (mL/min/1.73m2); Glucose 123 mg/dL (74-106); Potassium 3.6 mmol/L (3.5-5.1); Sodium 142 mmol/L (136-145); Total Protein 6.4 g/dL (6.4-8.2)
== END 2024-06-23 02:56 | disposition home or self-care (01) ==
PROVIDERS: PCP Physician Assistant Medical; Visit Provider Nurse Practitioner
DX: C50.911 Malignant neoplasm of unspecified site of right female breast (principal)
CPT/HCPCS: 36415; 80053; 85025

== ENCOUNTER 2024-07-18 15:03 | Outpatient (REF) | payer OTHER, SELFPAY ==
--- NOTE | 2024-07-18 11:30 | PAPFT_PTH ---
PATIENT: Amanda Miranda LOC: [facility]#:[id number] AGE/SX: 59/F ROOM: RE07/18/[address]: Munira Kuo : 1965 BED: DIS: 07/18/2024 SPEC #: [id number] RECD: 07/18/24 18:28 STATUS: XAVIER RESherrie #: [id number] ESTELLE: 07/18/24 11:[address]: Munira Kuo DEPT: [facility] Cytology RECD BY: Jeniffer Gamble Tissues: 1 - CX/ENDOCX FOR PAP SMEARS Procedures: PAP THIN PREP/UVM Screening HPV DNA PROBE Comments: [id number] (HPV 16 & 18/45)
[2024-07-18 19:46] LABS: Hemoglobin A1C 5.9 % (<5.7)
[2024-07-18 19:59] LABS: Calculated LDL 78 mg/dL (<100); Cholesterol 150 mg/dL (<200); HDL Cholesterol 59 mg/dL (>or=50); Triglyceride 65 mg/dL (<150); Vitamin D 25 Total 16 ng/mL (30-100)
== END 2024-07-18 15:04 | disposition home or self-care (01) ==
LOC: NCHCN 15:03
PROVIDERS: PCP Physician Assistant Medical; Visit Provider Physician Assistant Medical
DX: Z11.51 Encounter for screening for human papillomavirus (HPV) (principal); Z01.419 Encounter for gynecological examination (general) (routine) without abnormal findings; Z13.6 Encounter for screening for cardiovascular disorders; E11.9 Type 2 diabetes mellitus without complications; M85.88 Other specified disorders of bone density and structure, other site
CPT/HCPCS: 80061; 82306; 88142; 83036; 87624

== ENCOUNTER 2024-09-08 14:28 | Outpatient (REF) | payer OTHER, SELFPAY ==
--- NOTE | 2024-09-08 14:30 | ENDO_PTH ---
PATIENT: Amanda Miranda LOC: N U#:[id number] AGE/SX: 59/F ROOM: RE09/08/[address]: Pippa Olson DO : 1965 BED: DIS: 09/08/2024 SPEC #: [id number] RECD: 09/08/24 17:43 STATUS: XAVIER REQ #: [id number] ESTELLE: 09/08/24 14:[address]: Pippa Olson DEPT: Surgical Specimen RECD BY: Jeniffer Gamble ENTERED: 09/08/24 17:43 SP TYPE: Endo OTHR DR: Munira Kuo Tissues: 1 - ENDOCERVICAL BX/CURRETTE Procedures: GROSS AND MICRO LEVEL 4 Comments: [id number]
== END 2024-09-08 14:29 | disposition home or self-care (01) ==
LOC: LBN 14:28
PROVIDERS: PCP Physician Assistant Medical; Visit Provider Obstetrics & Gynecology
DX: D26.0 Other benign neoplasm of cervix uteri (principal)
CPT/HCPCS: 88305

== ENCOUNTER 2025-01-09 09:59 | Outpatient (CLI) | payer MEDICAID, SELFPAY ==
[2025-01-09 14:04] LABS: Abs Immature Grans 0.01 10^3/uL (0.0-0.06); HCT 35.9 % (36.0-46.0); HGB 11.6 g/dL (11.2-15.7); Immature Grans % 0.3 %; MCH 26.5 pg (27.0-33.0); MCHC 32.3 % (32.0-36.0); MCV 82 fL (80-95); MPV 10.1 fL (8.0-11.0); RBC 4.38 10^6/uL (3.93-5.22); RDW 16.1 % (11.7-14.6); RDW-SD 47.5 fL; WBC 3.74 10^3/uL (4.4-10.8)
[2025-01-09 14:19] LABS: Platelet Count 59 10^3/uL (130-400)
[2025-01-09 15:23] LABS: ALT 41 U/L (14-59); AST 44 U/L (15-37); Albumin 2.7 g/dL (3.4-5.0); Alkaline Phosphatase 146 U/L (46-116); Anion Gap 6.1 mmol/L (3-11); BUN 8 mg/dL (7-18); Bilirubin, Total 2.0 mg/dL (0.2-1.0); CO2 27.9 mmol/L (21.0-32.0); Calcium 8.5 mg/dL (8.5-10.1); Chloride 106 mmol/L (98-107); Estimated GFR 113.24 (mL/min/1.73m2); Glucose 158 mg/dL (74-106); Potassium 4.2 mmol/L (3.5-5.1); Sodium 140 mmol/L (136-145); Total Protein 6.3 g/dL (6.4-8.2)
== END 2025-01-09 10:00 | disposition home or self-care (01) ==
LOC: LBO 09:59
PROVIDERS: PCP Physician Assistant Medical; Visit Provider Nurse Practitioner Adult Health
DX: K74.60 Unspecified cirrhosis of liver (principal)
CPT/HCPCS: 36415; 80053; 85025

== ENCOUNTER 2025-04-25 13:17 | Outpatient (REF) | payer MEDICAID, SELFPAY ==
[2025-04-25 15:56] LABS: HCT 35.2 % (36.0-46.0); HGB 11.2 g/dL (11.2-15.7); MCH 26.8 pg (27.0-33.0); MCHC 31.8 % (32.0-36.0); MCV 84 fL (80-95); MPV 10.4 fL (8.0-11.0); RBC 4.18 10^6/uL (3.93-5.22); RDW 15.6 % (11.7-14.6); RDW-SD 47.7 fL; WBC 2.97 10^3/uL (4.4-10.8)
[2025-04-25 16:14] LABS: Vitamin D 25 Total 26 ng/mL (30-100)
[2025-04-25 16:19] LABS: Platelet Count 56 10^3/uL (130-400)
[2025-04-25 16:20] LABS: Hemoglobin A1C 5.9 % (<5.7)
== END 2025-04-25 13:18 | disposition home or self-care (01) ==
LOC: NCHCN 13:17
PROVIDERS: PCP Physician Assistant Medical; Visit Provider Physician Assistant Medical
DX: K62.5 Hemorrhage of anus and rectum (principal); E55.9 Vitamin D deficiency, unspecified; E11.9 Type 2 diabetes mellitus without complications
CPT/HCPCS: 82306; 85027; 83036